=== PATIENT | female | born 1960 | race Hispanic/Latino ===

== ENCOUNTER 2018-02-20 15:12 | Emergency (ER) | payer SELFPAY ==
[2018-02-20] MEDS ORDERED: KETOROLAC TROMETHAMINE 30MG/ML ONE (15:42)
[2018-02-20 15:43] LABS: BASOPHILS % (AUTO) 0.1 % (0.0-5.0); HEMATOCRIT 37.9 % (36-48); LYMPHOCYTES % (AUTO) 7.1 % (21.0-51.0); MEAN CORPUSCULAR HEMOGLOBIN 31.5 pg (27.0-33.0); MEAN CORPUSCULAR HGB CONC 33.6 g/dL (32.0-36.0); MEAN CORPUSCULAR VOLUME 93.6 fL (79-99); MONOCYTES % (AUTO) 3.9 % (3.0-13.0); NEUTROPHILS % (AUTO) 88.9 % (40.0-77.0); PLATELET COUNT (AUTO) 303 K/uL (130-400); RED BLOOD CELL COUNT(AUTO) 4.05 MIL/uL (4.00-5.50); RED CELL DISTRIBUTION WIDTH 12.8 % (11.0-15.5); WHITE BLOOD COUNT (AUTO) 14.4 K/uL (4.8-10.8)
[2018-02-20 15:54] LABS: CREATININE 1.1 mg/dL (0.5-1.5); POTASSIUM 3.7 mmol/L (3.5-5.1)
[2018-02-20 16:02] LABS: ALBUMIN 3.8 g/dL (3.5-5.0); BILIRUBIN,DIRECT 0.1 mg/dL (0.0-0.3); BILIRUBIN,TOTAL 0.3 mg/dL (0.2-1.0); TOTAL PROTEIN, SERUM 8.2 g/dL (6.0-8.3)
[2018-02-20] MEDS ORDERED: TAMSULOSIN HCL 0.4 MG CAP.ER.24H ONE (16:50)
[2018-02-20] MEDS ORDERED: CEFTRIAXONE SODIUM 1 GM ONE (16:51)
[2018-02-20] MEDS ORDERED: SODIUM CHLORIDE 0.9% 100 ML IV ONE (16:51)
[2018-02-20 16:54] LABS: APPEARANCE,URINE Clear (CLEAR); BILIRUBIN,URINE Negative (NEGATIVE); COLOR,URINE Yellow (YELLOW); GLUCOSE, URINE (UA) Negative (NEGATIVE); KETONES,URINE Trace mg/dL (NEGATIVE); LEUKOCYTE ESTERASE ,URINE Negative (NEGATIVE); NITRATE,URINE Negative (NEGATIVE); OCCULT BLOOD,URINE Nonhemolyzed Trace (NEGATIVE); PROTEIN,URINE Trace (NEGATIVE)
[2018-02-20 17:07] LABS: BACTERIA,URINE Rare /HPF (None Seen); WBC,URINE 0-1 /HPF (0-1)
[2018-02-20 17:08] LABS: SQUAMOUS EPITHELIAL CELL,UR Few /HPF (0-2)
== END 2018-02-20 17:18 | disposition home or self-care (01) ==
LOC: EDH 15:12
DX: N20.0 Calculus of kidney (principal); N20.1 Calculus of ureter; N13.30 Unspecified hydronephrosis; Z98.890 Other specified postprocedural states
CPT/HCPCS: 36415; 74176; 80048; 80076; 81001; 83690; 85025; 87088; 96374; 96375; 99284; J0696; J1885

== ENCOUNTER 2018-09-11 22:20 | Emergency (ER) | payer OTHER, SELFPAY ==
[2018-09-11] MEDS ORDERED: KETOROLAC TROMETHAMINE 60 MG/2 ML VIAL ONE (23:17)
[2018-09-11] MEDS ORDERED: ONDANSETRON HCL 4 MG/2 ML VIAL ONE (23:17)
[2018-09-11] MEDS ORDERED: SODIUM CHLORIDE 0.9% 1000ML 2,000 ML IV ONE (23:18)
[2018-09-11 23:25] LABS: APPEARANCE,URINE Clear (CLEAR); BILIRUBIN,URINE Negative (NEGATIVE); COLOR,URINE Yellow (YELLOW); GLUCOSE, URINE (UA) TRACE mg/dL (NEGATIVE); KETONES,URINE Negative (NEGATIVE); LEUKOCYTE ESTERASE ,URINE Trace (NEGATIVE); NITRATE,URINE Negative (NEGATIVE); OCCULT BLOOD,URINE Trace (NEGATIVE); PROTEIN,URINE Negative (NEGATIVE)
[2018-09-11 23:37] LABS: BASOPHILS % (AUTO) 3.9 % (0.0-5.0); EOSINOPHILS % (AUTO) 2.3 % (0.0-8.0); HEMATOCRIT 36.7 % (36-48); MEAN CORPUSCULAR HGB CONC 33.9 g/dL (32.0-36.0); MEAN CORPUSCULAR VOLUME 94.5 fL (79-99); MONOCYTES % (AUTO) 9.4 % (3.0-13.0); NEUTROPHILS % (AUTO) 61.4 % (40.0-77.0); NUCLEATED RED BLOOD CELLS 0.1 % (0.0-0.19); PLATELET COUNT (AUTO) 245 K/uL (130-400); RED BLOOD CELL COUNT(AUTO) 3.88 MIL/uL (4.00-5.50); RED CELL DISTRIBUTION WIDTH 12.9 % (11.0-15.5); WHITE BLOOD COUNT (AUTO) 6.2 K/uL (4.8-10.8)
[2018-09-11 23:45] LABS: INR 0.91 (0.85-1.15); PARTIAL THROMBOPLASTIN TIME 30.1 SEC (26.3-35.5); PROTHROMBIN TIME 9.6 SEC (9.6-11.6)
[2018-09-11 23:46] LABS: CREATININE 0.9 mg/dL (0.5-1.5)
[2018-09-11] MEDS ORDERED: LIDOCAINE PF 2% 5ML ABBOJECT ONE (23:47)
[2018-09-11 23:50] LABS: ALBUMIN 3.8 g/dL (3.5-5.0); BILIRUBIN,TOTAL 0.2 mg/dL (0.2-1.0); TOTAL PROTEIN, SERUM 7.4 g/dL (6.0-8.3)
[2018-09-11 23:58] LABS: BACTERIA,URINE Few /HPF (None Seen); WBC,URINE 0-1 /HPF (0-1)
[2018-09-11 23:59] LABS: MUCUS,URINE Few LPF (None Seen); SQUAMOUS EPITHELIAL CELL,UR 0-2 /HPF (0-2)
[2018-09-12] MEDS ORDERED: LEVOFLOXACIN 750 MG/D5W 150 ML 0 ML ONE (00:43)
[2018-09-12] MEDS ORDERED: CEFTRIAXONE SODIUM 1 GM ONE (00:43)
[2018-09-12] MEDS ORDERED: LEVOFLOXACIN 500 MG TABLET ONE (00:47)
[2018-09-12] MEDS ORDERED: METOCLOPRAMIDE 10 MG/2 ML VIAL ONE (00:49)
[2018-09-12] MEDS ORDERED: DiphenhydrAMINE HCL 50 MG/ML VIAL ONE (00:50)
[2018-09-12] MEDS ORDERED: ONDANSETRON HCL 4 MG/2 ML VIAL ONE (00:50)
[2018-09-12] MEDS ORDERED: TAMSULOSIN HCL 0.4 MG CAP.ER.24H ONE (01:34)
[2018-09-12] MEDS ORDERED: HYDROCODONE/ACETAMINOPHEN 5/325 MG TAB ONE (01:51)
== END 2018-09-12 01:59 | disposition home or self-care (01) ==
LOC: EDH 22:20
DX: N23 Unspecified renal colic (principal); N39.0 Urinary tract infection, site not specified; R31.9 Hematuria, unspecified; Z87.442 Personal history of urinary calculi
CPT/HCPCS: 36415; 74176; 80053; 81001; 83605; 83690; 84484; 85025; 85610; 85730; 96374; 96375 ×2; 99285; J0696; J1200; J1885; J2001; J2405 ×2; J2765; J7030; J1956

== ENCOUNTER 2018-09-16 12:54 | Emergency (ER) | payer SELFPAY ==
[2018-09-16] MEDS ORDERED: KETOROLAC TROMETHAMINE 60 MG/2 ML VIAL ONE (13:40)
== END 2018-09-16 14:17 | disposition home or self-care (01) ==
LOC: EDH 12:54
DX: N20.0 Calculus of kidney (principal)
CPT/HCPCS: 96372; 99283; J1885

== ENCOUNTER 2024-02-07 18:43 | Inpatient (IN) | payer OTHER, SELFPAY ==
[~2024-02-07] VITALS: Ht 157.5 cm; Wt 112.2 kg
[2024-02-07] MEDS: 0.9%NACL 1000ML 1,000 ML IV ONE (19:13)
[2024-02-07] MEDS: ondanSETRON 4MG INJ IVP ONE (19:14)
[2024-02-07] MEDS: ketOROlac 15MG/ML VIAL (15MG/ML) IV ONE (19:15)
--- NOTE | 2024-02-07 19:19 | NUR ---
PT REORIENTED TO ROOM, CALL LIGHT WITHIN REACH
[2024-02-07 19:25] LABS: BASOPHILS # (AUTO) 0.03 K/uL (0.00-0.20); BASOPHILS % (AUTO) 0.3 % (0.0-5.0); EOSINOPHILS # (AUTO) 0.05 K/uL (0.00-0.70); EOSINOPHILS % (AUTO) 0.4 % (0.0-8.0); IMMATURE GRANULOCYTE ABSOLUTE 0.05 K/uL (0-1); LYMPHOCYTES # (AUTO) 1.5 K/uL (1.0-4.8); LYMPHOCYTES % (AUTO) 12.8 % (21.0-51.0); MEAN CORPUSCULAR HGB CONC 32.5 g/dL (32.0-36.0); MEAN CORPUSCULAR VOLUME 95.2 fL (79-99); MONOCYTES # (AUTO) 0.5 K/uL (0.1-1.0); MONOCYTES % (AUTO) 4.5 % (3.0-13.0); NEUTROPHILS # (AUTO) 9.6 K/uL (1.8-7.7); NEUTROPHILS % (AUTO) 81.6 % (40.0-77.0); PLATELET COUNT (AUTO) 297 K/uL (130-400); RED BLOOD CELL COUNT(AUTO) 3.78 MIL/uL (4.00-5.50); WHITE BLOOD COUNT (AUTO) 11.8 K/uL (4.8-10.8)
[2024-02-07 19:40] LABS: CREATININE 1.1 mg/dL (0.5-1.0); POTASSIUM 4.3 mmol/L (3.5-5.1)
[2024-02-07 19:44] LABS: ALBUMIN 3.8 g/dL (3.5-5.0); BILIRUBIN,DIRECT 0.1 mg/dL (0.0-0.3); BILIRUBIN,TOTAL 0.4 mg/dL (0.2-1.0)
--- NOTE | 2024-02-07 20:16 | HMCIMG ---
CT ABDOMEN/PELVIS W/O CONTRAST HISTORY: Right flank pain COMPARISON: 09/11/2018 TECHNIQUE: Multiple sequential axial images of the abdomen and pelvis were obtained from the dome of the diaphragm through symphysis pubis. Patient was not given contrast through intravenous route. Oral contrast was not given. FINDINGS: No pleural effusion is seen bilaterally. There is no evidence of parenchymal disease or pulmonary nodule of the visualized lower lungs. Degenerative changes of the thoracolumbar spine are present. The heart is not enlarged. Liver measures 18 cm. The liver, spleen, adrenal glands and pancreas are unremarkable. No hydronephrosis is seen on the left. There is right hydronephrosis with right hydroureter with 11 mm renal stone in the right proximal ureter. There is right renal atrophy. Right renal pelvic stone is also seen. Fecal material is seen in the colon. There are normal size retroperitoneal and mesenteric lymph nodes. No ascites is seen. No CT evidence of acute appendicitis is seen. Pelvic sidewalls are symmetric bilaterally. Bladder is moderately distended. IMPRESSION: 1. Right hydronephrosis with right hydroureter with 11 mm renal stone in the right proximal ureter. CT was performed with one or more following dose reduction techniques: automated exposure control, adjustment of the mA and kv according to patient's size, or use of a iterative reconstruction technique.
[2024-02-07] MEDS: tamSULOsin HCL 0.4 MG CAP.ER.24H PO SCH (20:37)
[2024-02-07] MEDS: morPHINE 2 MG SYG IVP SCH (20:38)
[2024-02-07 20:55] LABS: APPEARANCE,URINE CLEAR (CLEAR); BILIRUBIN,URINE NEGATIVE (NEGATIVE); COLOR,URINE LIGHT-YELLOW (YELLOW); GLUCOSE, URINE (UA) NEGATIVE (NEGATIVE); KETONES,URINE NEGATIVE (NEGATIVE); LEUKOCYTE ESTERASE ,URINE 250 Leu/uL (NEGATIVE); NITRATE,URINE NEGATIVE (NEGATIVE); OCCULT BLOOD,URINE SMALL (NEGATIVE); PROTEIN,URINE 30 mg/dL (NEGATIVE); UROBILINOGEN,URINE 0.2 mg/dL (0.2-1.0)
[2024-02-07 21:19] LABS: ADD UA MICROSCOPIC YES
[2024-02-07 21:25] LABS: BACTERIA,URINE RARE /HPF (None Seen); MUCUS,URINE RARE LPF (None Seen); SQUAMOUS EPITHELIAL CELL,UR FEW /HPF (0-2)
[2024-02-07] MEDS: cefTRIAXone 1G VIAL IVPB ONE (21:49)
--- NOTE | 2024-02-07 21:54 | ERN ---
General Chief Complaint: Abdominal Pain Stated Complaint: LOWER ABD PAIN X 2 WEEKS Time Seen by MD: 18:48 Time Seen by Midlevel: 18:48 Source: patient History of Present Illness Initial Comments Patient is a 64-year-old female with a past medical history of kidney stones presenting to the emergency department with right lower quadrant abdominal pain that radiates to her right flank area. She reports associated nausea and vomiting. Patient states the pain has been getting worse over the last couple of days. She states her last kidney stone was over seven years ago and she needed a nephrostomy tube placed. She reports recently being diagnosed with diabetes on October 19 and started new medications. She is unsure if the symptoms she was experiencing today are from the medication she started. Allergies: Coded Allergies: No Known Drug Allergies (Verified Allergy, 08/15/11) Home Meds Reported Medications Ondansetron (Ondansetron Odt) 4 Mg Tab.rapdis, 0.5 TAB PO TID PRN for nausea/vomiting for 4 Days, #8 TAB 0 Refills 02/07/24 Metformin HCl (Metformin HCl) 1,000 Mg Tablet, 500 MG PO BID, TAB 02/07/24 Atorvastatin Calcium (Atorvastatin Calcium) 20 Mg Tablet, 1 TAB PO HS for 30 Days, #30 TAB 0 Refills 02/07/24 Past Medical History Past Medical History: Diabetes-Type II, High Cholesterol, Kidney Stone, Sinusitis Past Surgical History: Other Surgical History Other: BREAST LUMP FATTY TUMOR, LITHOTRIPSY, LEG ROS Dictation CONSTITUTIONAL: Negative except for HPI HEAD/FACE: Negative except for HPI EENT: Negative except for HPI RESPIRATORY: Negative except for HPI GASTROINTESTINAL/ABDOMINAL: Negative except for HPI GENITOURINARY: Negative except for HPI MUSCULOSKELETAL: Negative except for HPI INTEGUMENTARY: Negative except for HPI NEUROLOGICAL/PSYCH: Negative except for HPI HEMATOLOGIC/LYMPHATIC: Negative except for HPI All Systems Negative, Except as noted above. 13 point review of systems assessed and all negative except for above. Physical Exam Physical Exam Dictation Vital Signs reviewed General Appearance: Alert, oriented x 3, no acute distress, well developed, nourished. Head and Face: non-traumatic. Eyes: PERRL, pink conjunctivas, eyelid no trauma, anterior chamber with arcus senilis. Ears: Pinnas intact and no signs of trauma or erythema ear canals clear and no discharge TM no erythema Nose: No discharge, no bleeding. Oropharynx: Mouth normal, tongue pink, pharynx clear,no erythema, tonsils no exudates, no abscesses noted, mucous membrane moist Neck: Supple, non-tender, no thyromegaly, no masses, no JVD, no bruits Breast:Deferred Chest:No tenderness, no crepitus, no paradoxical movement, no retractions Lungs:Clear, well-ventilated, symmetric, no rales, no wheezing, no rhonchi, no stridor, good breath sounds bilaterally Heart: Regular rate, regular rhythm, no murmur, no gallops Vascular: no peripheral edema, Abdomen: Soft, positive bowel sounds, nondistended, no guarding, nontender, no rebound, no masses no hepatomegaly, no splenomegaly, no Washington's sign, no hernias. Rectal: Deferred Genital: Deferred Neurological: Normal speech, motor function intact, sensory function intact Musculoskeletal: Neck nontender, full range of motion, back nontender, full range of motion, Extremities: nontender, full range of motion Skin: Color pink, dry, no turgor, no rash, no lacerations, no abrasions, no contusions. Lymphatic: Deferred Results Laboratory and Microbiology Lab and Micro Result Laboratory Tests Test 02/07/24 19:00 02/07/24 20:44 White Blood Count 11.8 K/uL (4.8-10.8) H Red Blood Count 3.78 MIL/uL (4.00-5.50) L Hemoglobin 11.7 g/dL (12.0-16.0) L Hematocrit 36.0 % (36-48) Mean Corpuscular Volume 95.2 fL (79-99) Mean Corpuscular Hemoglobin 31.0 pg (27.0-33.0) Mean Corpuscular Hemoglobin Concent 32.5 g/dL (32.0-36.0) Red Cell Distribution Width 12.0 % (11.0-15.5) Platelet Count 297 K/uL (130-400) Mean Platelet Volume 11.2 fL (7.5-10.5) H Immature Granulocyte % (Auto) 0.4 % (0-1) Neutrophils (%) (Auto) 81.6 % (40.0-77.0) H Lymphocytes (%) (Auto) 12.8 % (21.0-51.0) L Monocytes (%) (Auto) 4.5 % (3.0-13.0) Eosinophils (%) (Auto) 0.4 % (0.0-8.0) Basophils (%) (Auto) 0.3 % (0.0-5.0) Neutrophils # (Auto) 9.6 K/uL (1.8-7.7) H Lymphocytes # (Auto) 1.5 K/uL (1.0-4.8) Monocytes # (Auto) 0.5 K/uL (0.1-1.0) Eosinophils # (Auto) 0.05 K/uL (0.00-0.70) Basophils # (Auto) 0.03 K/uL (0.00-0.20) Absolute Immature Granulocyte (auto 0.05 K/uL (0-1) Nucleated Red Blood Cells 0.0 % (0.0-0.19) Sodium Level 140 mmol/L (136-145) Potassium Level 4.3 mmol/L (3.5-5.1) Chloride Level 102 mmol/L (101-111) Carbon Dioxide Level 29 mmol/L (21-32) Blood Urea Nitrogen 16 mg/dL (7-18) Creatinine 1.1 mg/dL (0.5-1.0) H Glomerular Filtration Rate Calc 57 mL/min (>90) Random Glucose 133 mg/dL (70-105) H Total Calcium 9.4 mg/dL (8.5-10.1) Total Bilirubin 0.4 mg/dL (0.2-1.0) Direct Bilirubin 0.1 mg/dL (0.0-0.3) Aspartate Amino Transf (AST/SGOT) 14 U/L (10-37) Alanine Aminotransferase (ALT/SGPT) 23 U/L (12-78) Alkaline Phosphatase 111 U/L (50-136) Total Protein 8.0 g/dL (6.0-8.3) Albumin 3.8 g/dL (3.5-5.0) Lipase 30 U/L (16-77) Urine Color LIGHT-YELLOW (YELLOW) Urine Appearance CLEAR (CLEAR) Urine pH 7.0 (5.0-8.0) Urine Specific [place] 1.020 (1.001-1.031) Urine Protein 30 mg/dL (NEGATIVE) H Urine Glucose (UA) NEGATIVE mg/dL (NEGATIVE) Urine Ketones NEGATIVE mg/dL (NEGATIVE) Urine Occult Blood SMALL (NEGATIVE) H Urine Nitrate NEGATIVE (NEGATIVE) Urine Bilirubin NEGATIVE mg/dL (NEGATIVE) Urine Urobilinogen 0.2 mg/dL (0.2-1.0) Urine Leukocyte Esterase 250 Allie/uL (NEGATIVE) H Urine RBC 11-25 /HPF (0-1) H Urine WBC 6-10 /HPF (0-1) H Urine Squamous Epithelial Cells FEW /HPF (0-2) Urine Bacteria RARE /HPF (None Seen) Labs Reviewed?: Yes MDM MDM: Differential diagnosis: Ureter stone, urinary tract infection, pyelonephritis Rationale: Tests considered and ordered secondary to shared decision making include: Previous outside records reviewed: Old ER visits. Risk of complication and/or morbidity or mortality of patient management: None Medications-Per medication reconciliation Need for hospitalization: Patient does meet criteria for hospitalization. Need for emergency major/minor surgery: No There are no social concerns with this patient. Prescription drug management Prescriptions will include symptomatic care Patient's prior external medical records from other ER visits were reviewed by me as indicated. Prior testing and results from previous visits were reviewed. Prior tests were taken into account with medical decision making and resource utilization, independent historian/historians were used to obtain complete medical history. I independently interpreted the test that were performed, results were reviewed by me and considered findings on radiology if ordered. Medical management and examination interpretation discussions were had by me with other qualified healthcare professionals as indicated for the patient's care. ED Course Orders Procedure Category Date Status Time Cbc With Differential LAB 02/07/24 Complete 18:52 Basic Metabolic Panel LAB 02/07/24 Complete 18:52 Hepatic Function Panel LAB 02/07/24 Complete 18:52 Lipase LAB 02/07/24 Complete 18:52 Urinalysis Profile LAB 02/07/24 Complete 18:52 Ondansetron 4mg Inj PHA 02/07/24 Complete (Zofran 4mg Inj) 19:00 0.9%Nacl 1000ml (Ns PHA 02/07/24 Complete 1000ml) 19:00 Ketorolac PHA 02/07/24 Complete Tromethamine 15mg/Ml 19:00 Ct Abdomen/Pelvis W/O CT 02/07/24 Resulted Contrast 19:06 Morphine 2mg Syg PHA 02/07/24 Complete (Morphine 2mg Syg) 20:30 Tamsulosin Hcl PHA 02/07/24 Complete (Flomax) 20:30 Culture Urine MARILEE 02/07/24 In Process 21:19 Ceftriaxone 1g Vial PHA 02/07/24 Complete (Rocephine 1g Inj) 22:00 Current Medications Medications (Trade) Dose Ordered Sig/[place] Route PRN Reason Start Time Stop Time Status Last Admin Dose Admin Ketorolac Tromethamine (toRADol) 15 mg ONCE ONCE IV 02/07/24 19:00 02/07/24 19:01 DC 02/07/24 19:15 Morphine Sulfate (morPHINE 2MG SYG) 2 mg ONCE IVP 02/07/24 20:30 02/07/24 23:59 DC 02/07/24 20:38 Ondansetron HCl (zoFRAN 4MG INJ) 4 mg ONCE ONCE IVP 02/07/24 19:00 02/07/24 19:01 DC 02/07/24 19:14 Sodium Chloride 1,000 ml @ 0 mls/hr ONCE ONCE IV 02/07/24 19:00 02/07/24 19:01 DC 02/07/24 19:13 Tamsulosin HCl (FloMAX) 0.4 mg ONCE PO 02/07/24 20:30 02/07/24 23:59 DC 02/07/24 20:37 Vital Signs Date Time Temp Pulse Resp B/P (MAP) Pulse Ox O2 Delivery O2 Flow Rate FiO2 02/07/24 19:18 98.2 63 20 171/87 98 Room Air* 0 21 02/07/24 18:45 99.5 66 16 182/91 97 Room Air 0 [place] [id number] IMAGING REPORT Signed PATIENT: BRANDON VALENTINE MR#: [id number] : 1960 SEX: F AGE: 64 LOCATION: [facility] ORDER 06 STATUS: REG ER REPORT#: [id number] SERVICE 05 REASON: r/flank pain r/o kidney stone ORDERING PHYSICIAN: PADMA HAINES PROCEDURE: ABD PEL WO - CT ABDOMEN/PELVIS W/O CONTRAST CT ABDOMEN/PELVIS W/O CONTRAST HISTORY: Right flank pain COMPARISON: 09/11/2018 TECHNIQUE: Multiple sequential axial images of the abdomen and pelvis were obtained from the dome of the diaphragm through symphysis pubis. Patient was not given contrast through intravenous route. Oral contrast was not given. FINDINGS: No pleural effusion is seen bilaterally. There is no evidence of parenchymal disease or pulmonary nodule of the visualized lower lungs. Degenerative changes of the thoracolumbar spine are present. The heart is not enlarged. Liver measures 18 cm. The liver, spleen, adrenal glands and pancreas are unremarkable. No hydronephrosis is seen on the left. There is right hydronephrosis with right hydroureter with 11 mm renal stone in the right proximal ureter. There is right renal atrophy. Right renal pelvic stone is also seen. Fecal material is seen in the colon. There are normal size retroperitoneal and mesenteric lymph nodes. No ascites is seen. No CT evidence of acute appendicitis is seen. Pelvic sidewalls are symmetric bilaterally. Bladder is moderately distended. IMPRESSION: 1. Right hydronephrosis with right hydroureter with 11 mm renal stone in the right proximal ureter. CT was performed with one or more following dose reduction techniques: automated exposure control, adjustment of the mA and kv according to patient's size, or use of a iterative reconstruction technique. DICTATED BY: JAM JUAREZ MD DATE: 02/07/242004 ELECTRONICALLY SIGNED BY: JAM JUAREZ MD DATE: 02/07/242015 DX & DISP Disposition: Inpatient Decision to Admit Date: Feb 07, 2024 Decision to Admit Time: 21:54 Departure Impression: Primary Impression: Right ureteral stone Additional Impressions: Hydronephrosis, right, Leukocytosis, Urinary tract infection Condition: Stable Referrals: SELF,REFERRAL (PCP) Time of Disposition: 21:54 I have reviewed the case, and I agree with, Diagnosis and Plan I performed the substantive portion of the visit. I have reviewed and personally made and approve the management plan that is documented in the note by myself or the EDGARDO. I acknowledge for responsibility for the patient's management plan. PADMA HAINES Feb 07, 2024 21:54
--- NOTE | 2024-02-07 22:09 | HP ---
History of Present Illness Reason for Visit: Abdominal pain History of Present Illness Ms. Brambila is a 64-year-old female that was seen and examined today on 02/07/2024. Patient is a good historian and personal health. Patient reports that she came to the emergency department with a chief complaint of abdominal pain. Onset wastoday at 7:00 p.m.. Location is suprapubic. Duration is on and off. Character is described as cramping. There was no alleviating factors. There was no aggravating factors. Patient reports associated nausea and vomiting x3 episodes. Today in the emergency department CBC unremarkable, chemistry unremarkable, urinalysis positive for leukocyte esterase and WBCs 6-10 under high-powered microscopy. CT of abdomen and pelvis shows right hydronephrosis with right hydroureter with the 11 mm renal stone in the right proximal ureter. For this reason emergency room requested patient be admitted to they could be evaluated by urology service. Past Medical History ADDITIONAL PAST MEDICAL HISTORY: [Diabetes mellitius type2, hyperlipidemia] SOCIAL HISTORY: [NEGATIVE FOR SMOKING, ALCOHOL USE, DRUG USE. PATIENT LIVES WITH HER BROTHER STEPHEN Brambila. 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 Patient denies difficulty paying her bills. Patient is typically independent of all her ADLs. Patient has good access to health care through her insurance.] SURGICAL HISTORY: [Left breast lipoma, left inner thigh lipoma excision, right lower back lipoma excision, ESWL] Review of Systems General: No Fever, No Chills, No Night Sweats, No Fatigue, No Malaise, No Appetite, No Other HEENT: No Head Aches, No Visual Changes, No Eye Pain, No Ear Pain, No Dysphasia, No Sinus Congestion, No Post Nasal Drip, No Sore Throat, No Other Pulmonary: No Dyspnea, No Cough, No Pleuritic Chest Pain, No Other Cardiovascular: No: Chest Pain, Palpitations, Orthopnea, Paroxysmal Noc. Dyspnea, Edema, Lt Headedness, Other Gastrointestinal: Nausea, Vomiting, Abdominal Pain; No: Diarrhea, Constipation, Melena, Hematochezia, Other Genitourinary: No Dysuria, No Frequency, No Incontinence, No Hematuria, No Retention, No Other Musculoskeletal: No: other, neck pain, shoulder pain, arm pain, back pain, hand pain, leg pain, foot pain Skin: No Urticaria, No Rash, No Other Neurological: No: Weakness, Numbness, Incoordination, Change in speech, Confus ion, Seizures, Other Allergies: Coded Allergies: No Known Drug Allergies (Verified Allergy, 08/15/11) Scheduled Atorvastatin Calcium (Atorvastatin Calcium), 1 TAB PO HS, (Reported) Metformin HCl (Metformin HCl), 500 MG PO BID, (Reported) Scheduled PRN Ondansetron (Ondansetron Odt), 0.5 TAB PO TID PRN for nausea/vomiting, (Reported) Exam Vital Signs Vital Signs Date Time Temp Pulse Resp B/P (MAP) Pulse Ox O2 Delivery O2 Flow Rate FiO2 02/07/24 19:18 98.2 63 20 171/87 98 Room Air* 0 21 General Appearance: Alert, Oriented X3, Cooperative, mild distress HEENT: Atraumatic, EOMI Respiratory: Clear to auscultation, Normal air movement, NL respiratory effort Cardiovascular: Regular rate, Regular rhythm, Normal S1, Normal S2 Abdominal: Normal bowel sounds, Soft, No tenderness Extremities: No edema Skin: No significant lesion Neuro: Normal speech, Strength at 5/5 X4 ext, Sensation intact, Cranial nerves 3-12 NL Psych/Mental Status: Mental status NL, Mood NL, Thoughts/Content NL Assessment/Plan ASSESSMENT: [ Right hydronephrosis, POA Right hydroureter, POA Nephrolithiasis, [address] on 02/07/2024, POA Urinary tract infection, POA Diabetes mellitius type2 hyperlipidemia PLAN: [ Admit patient to medical-surgical floor as inpatient status. Patient will be followed by urology service, Dr. Lima Keep patient NPO Lactated Ringer's 100 mL/HR maintenance fluids Check preprocedure labs, CBC, BMP, magnesium, phosphorus, PTT, UA, type and screen, EKG, CXR As needed analgesia with morphine Empiric antibiotic therapy with Rocephin Check glucometer a.c. and HS Humulin R sliding scale 1/2 dose Check hemoglobin A1c in a.m. Consider resuming home medications once patient is no longer NPO GI prophylaxis, famotidine 20 mg IV once daily. DVT prophylaxis, Quique's and SCDs. ADVANCED CARE PLANNING 1. Which of the following were discussed? Hospice Care - Yes Therapeutic options - Yes Advance Directives - Yes- patient states she does not have any advance directives in place at this time, however her brother can make decisions for her if she becomes unable. Other discussions - patient wishes to remain a full code at this time 2. Discussed with who? Patient 3. Voluntary nature of this service was explained to the patient? Yes 4. Amount of time spent - ___ 16 minutes ____ 5. Reviewed by Physician? (if this service was performed by NPP) Yes This document was generated in part using voice recognition software, occasional wrong word or sound alike substitutions may have occurred due to the inherent limitations of voice recognition software. Read the chart carefully and recognize using context, where the substitutions have occurred. Although every effort was made to edit the content, leather goods ii assembler and typing errors may occur ATTESTATION BY PHYSICIAN I have seen and examined the patient. I reviewed the documentation, medical decision making, and treatment plan as noted by the mid-level provider above. I agree with the findings and plan of care. BRIANNA DURAN [facility] Feb 07, 2024 22:08
[2024-02-07] MEDS ORDERED: METF-446 PO (22:24)
[2024-02-07] MEDS ORDERED: ATOR20TA65 PO (22:24)
[2024-02-07] MEDS ORDERED: ONDA-243 PO ×2 (22:25)
[2024-02-08] MEDS ORDERED: hydrALAZine 20MG/ML VIAL IV PRN (00:30)
[2024-02-08] MEDS ORDERED: ondanSETRON 4MG INJ IV PRN (00:30)
[2024-02-08] MEDS ORDERED: acetaMINOPHEN 650 MG SUPPOSITORY RC PRN (00:30)
[2024-02-08] MEDS: LACTATED RINGERS 1000ML 1,000 ML IV SCH (00:50)
[2024-02-08 03:52] LABS: BASOPHILS # (AUTO) 0.03 K/uL (0.00-0.20); BASOPHILS % (AUTO) 0.4 % (0.0-5.0); EOSINOPHILS # (AUTO) 0.08 K/uL (0.00-0.70); EOSINOPHILS % (AUTO) 1.1 % (0.0-8.0); HEMATOCRIT 32.1 % (36-48); IMMATURE GRANULOCYTE ABSOLUTE 0.02 K/uL (0-1); LYMPHOCYTES # (AUTO) 2.3 K/uL (1.0-4.8); LYMPHOCYTES % (AUTO) 30.1 % (21.0-51.0); MEAN CORPUSCULAR HEMOGLOBIN 30.9 pg (27.0-33.0); MEAN CORPUSCULAR HGB CONC 32.4 g/dL (32.0-36.0); MEAN CORPUSCULAR VOLUME 95.3 fL (79-99); MONOCYTES # (AUTO) 0.6 K/uL (0.1-1.0); MONOCYTES % (AUTO) 7.4 % (3.0-13.0); NEUTROPHILS # (AUTO) 4.6 K/uL (1.8-7.7); NEUTROPHILS % (AUTO) 60.7 % (40.0-77.0); PLATELET COUNT (AUTO) 256 K/uL (130-400); RED BLOOD CELL COUNT(AUTO) 3.37 MIL/uL (4.00-5.50); WHITE BLOOD COUNT (AUTO) 7.6 K/uL (4.8-10.8)
[2024-02-08 04:02] LABS: HEMOGLOBIN A1C 6.5 % (4.0-6.0); INR 1.01 (0.85-1.15); PROTHROMBIN TIME 10.9 SEC (9.6-11.6)
[2024-02-08 04:03] LABS: PARTIAL THROMBOPLASTIN TIME 29.6 SEC (26.3-35.5)
[2024-02-08 04:04] LABS: CREATININE 1.1 mg/dL (0.5-1.0); MAGNESIUM 1.8 mg/dL (1.80-2.40); PHOSPHORUS 4.1 mg/dL (2.5-4.9); POTASSIUM 4.3 mmol/L (3.5-5.1)
[2024-02-08] MEDS: INSULIN humuLIN R 100 UNIT/ML 3ML SQ SCH (07:30)
--- NOTE | 2024-02-08 08:00 | NUR ---
BLOOD GLUCOSE 99. NO INSULIN COVERAGE NEEDED AT THIS TIME
--- NOTE | 2024-02-08 08:00 | NUR ---
CALLED DR. GARCIA OFFICE TO NOTIFY ABOUT NEW CONSULT. NO NEW ORDERS
[2024-02-08] MEDS: FAMOTIDINE 20MG VIAL IV SCH (09:39)
--- NOTE | 2024-02-08 10:26 | HMCIMG ---
CHEST 1VW REASON: pre procedural COMPARISON: None. FINDINGS: Single view of the chest was obtained. Lungs are clear. Heart size is normal. There is no pulmonary vascular congestion. Mediastinum and bony thorax appear unremarkable. IMPRESSION: 1. Normal single view chest x-ray.
--- NOTE | 2024-02-08 12:00 | NUR ---
BLOOD GLUCOSE 110. NO INSULIN COVERAGE NEDED AT THIS TIME.
--- NOTE | 2024-02-08 13:43 | PN ---
[facility] PROGRESS NOTE Date of Service: Feb 08, 2024 Time of Service: 13:[address] Reaves SUBJECTIVE: [ 02/06 Ms. Brambila is a 64-year-old female that was seen and examined today on 02/07/2024. Patient is a good historian and personal health. Patient reports that she came to the emergency department with a chief complaint of abdominal pain. Onset wastoday at 7:00 p.m.. Location is suprapubic. Duration is on and off. Character is described as cramping. There was no alleviating factors. There was no aggravating factors. Patient reports associated nausea and vomiting x3 episodes. Today in the emergency department CBC unremarkable, chemistry unremarkable, urinalysis positive for leukocyte esterase and WBCs 6-10 under high-powered microscopy. CT of abdomen and pelvis shows right hydronephrosis with right hydroureter with the 11 mm renal stone in the right proximal ureter. For this reason emergency room requested patient be admitted to they could be evaluated by urology service. 02/07 patient was seen by nurse practitioner and physician during rounding in emergency department in room ED three lying in the bed. CT abdomen/pelvis showed right hydroureter stone measuring 11 mm and also right hydronephrosis. Chest x-ray] normal single-view. We are waiting for further recommendations of urologist regarding the stone. We will continue to monitor patient in the meantime. A.m. labs. At this moment patient is on Rocephin UA positive for leukocytosis REVIEW OF SYSTEMS CONSTITUTIONAL: Denies fevers, chills, or night sweats. No unintentional weight loss reported. NEUROLOGICAL: Denies headache, amaurosis fugax, motor weakness, sensory deficit, vertigo/spinning sensation, gait abnormalities, or tremors. ENT: No hearing loss, otalgia, otorrhea, rhinitis, rhinorrhea, hoarseness, or sore throat. CARDIOVASCULAR: Denies any exertional angina, dyspnea on exertion, orthopnea, paroxysmal nocturnal dyspnea, palpitations, life-threatening arrhythmias, claudication. PULMONARY: Denies any shortness of breath, cough, phlegm/sputum, hemoptysis, pleuritic chest pain. SLEEP: Denies morning headaches, daytime somnolence or napping. Denies difficulty falling asleep, staying asleep, waking from sleep. Denies knowledge of snoring. GASTROINTESTINAL: Denies any type of dysphagia to either liquids or solids. Denies nausea, vomiting, pyrosis, early satiety, abdominal pain, diarrhea, constipation, or changes in stool consistency or caliber. Denies coffee-ground emesis, hematemesis, hematochezia, or melanotic stools. GENITOURINARY: Denies frequency, urgency, nocturia, hematuria or incontinence (Storage/Irritative symptoms.) Low urinary stream, straining to void, urinary intermittency or hesitancy, splitting of the voiding stream, terminal dribbling. ENDOCRINOLOGIC: Denies polyuria, polydipsia, polyphagia or heat/cold intolerances. HEMATOLOGIC: Denies thrombophilia/previous clots, or coagulopathy/bleeding disorders. ONCOLOGIC: Denies personal history of malignancy. DERMATOLOGIC: Denies rashes or pruritus. PSYCHIATRIC: Denies any suicidal or homicidal ideation. Denies hallucinations. PHYSICAL EXAM GENERAL APPEARANCE: The patient is awake, alert, and oriented, in no acute cardiopulmonary distress. NEUROLOGICAL: Cranial nerves II-XII grossly intact. Motor is 5/5 in bilateral upper and lower extremities proximal to distal. No sensory deficits. HEENT: Face is symmetric. Pupils are equal and reactive. Extraocular movements are intact. NECK: Supple. No JVD. No thyromegaly. No submental, submandibular, pre- /postauricular, occipital or supraclavicular lymphadenopathy. CHEST: Normal chest expansion. No Telemetry. LUNGS: Absence of any rales, rhonchi or any wheezing. CARDIOVASCULAR: Regular. S1 and S2 normal. No appreciable rubs, murmurs or gallops. ABDOMEN: Soft, nontender, and nondistended. There is no rebound, voluntary guarding, or rigidity. : Deferred. No Pa. EXTREMITIES: Non-edematous and not cyanotic. No clubbing. Good capillary refill. SKIN: No skin breakdown. Vital Signs (last 8hr) Date Time Temp Pulse Resp B/P (MAP) Pulse Ox O2 Delivery O2 Flow Rate FiO2 02/08/24 08:00 97.5 69 16 138/67 97 Room Air* 0 21 02/08/24 06:22 98.4 60 18 146/77 97 Room Air* 0 21 LABS: Laboratory: Test 02/08/24 11:42 02/08/24 03:40 02/07/24 20:44 02/07/24 19:00 Range/Units Whole Blood Glucose 99 70-110 MG/DL White Blood Count 7.6 # 4.8-10.8 K/uL Red Blood Count 3.37 L 4.00-5.50 MIL/uL Hemoglobin 10.4 L 12.0-16.0 g/dL Hematocrit 32.1 L 36-48 % Mean Corpuscular Volume 95.3 79-99 fL Mean Corpuscular Hemoglobin 30.9 27.0-33.0 pg Mean Corpuscular Hemoglobin Concent 32.4 32.0-36.0 g/dL Red Cell Distribution Width 12.0 11.0-15.5 % Platelet Count 256 130-400 K/uL Mean Platelet Volume 11.0 H 7.5-10.5 fL Immature Granulocyte % (Auto) 0.3 0-1 % Neutrophils (%) (Auto) 60.7 40.0-77.0 % Lymphocytes (%) (Auto) 30.1 21.0-51.0 % Monocytes (%) (Auto) 7.4 3.0-13.0 % Eosinophils (%) (Auto) 1.1 0.0-8.0 % Basophils (%) (Auto) 0.4 0.0-5.0 % Neutrophils # (Auto) 4.6 1.8-7.7 K/uL Lymphocytes # (Auto) 2.3 1.0-4.8 K/uL Monocytes # (Auto) 0.6 0.1-1.0 K/uL Eosinophils # (Auto) 0.08 0.00-0.70 K/uL Basophils # (Auto) 0.03 0.00-0.20 K/uL Absolute Immature Granulocyte (auto 0.02 0-1 K/uL Nucleated Red Blood Cells 0.0 0.0-0.19 % Prothrombin Time 10.9 9.6-11.6 SEC Prothromb Time International Ratio 1.01 0.85-1.15 Activated Partial Thromboplast Time 29.6 26.3-35.5 SEC Sodium Level 142 136-145 mmol/L Potassium Level 4.3 3.5-5.1 mmol/L Chloride Level 106 101-111 mmol/L Carbon Dioxide Level 29 21-32 mmol/L Blood Urea Nitrogen 16 7-18 mg/dL Creatinine 1.1 H 0.5-1.0 mg/dL Glomerular Filtration Rate Calc 57 >90 mL/min Random Glucose 110 H 70-105 mg/dL Hemoglobin A1c 6.5 H 4.0-6.0 % Estimated Average Glucose (eAG) 140 H 70-126 mg/dL Total Calcium 8.8 8.5-10.1 mg/dL Phosphorus Level 4.1 2.5-4.9 mg/dL Magnesium Level 1.80 1.80-2.40 mg/dL Urine Color LIGHT-YELLOW YELLOW Urine Appearance CLEAR CLEAR Urine pH 7.0 5.0-8.0 Urine Specific [place] 1.020 1.001-1.031 Urine Protein 30 H NEGATIVE mg/dL Urine Glucose (UA) NEGATIVE NEGATIVE mg/dL Urine Ketones NEGATIVE NEGATIVE mg/dL Urine Occult Blood SMALL H NEGATIVE Urine Nitrate NEGATIVE NEGATIVE Urine Bilirubin NEGATIVE NEGATIVE mg/dL Urine Urobilinogen 0.2 0.2-1.0 mg/dL Urine Leukocyte Esterase 250 H NEGATIVE Allie/uL Urine RBC 11-25 H 0-1 /HPF Urine WBC 6-10 H 0-1 /HPF Urine Squamous Epithelial Cells FEW 0-2 /HPF Urine Bacteria RARE None Seen /HPF Total Bilirubin 0.4 0.2-1.0 mg/dL Direct Bilirubin 0.1 0.0-0.3 mg/dL Aspartate Amino Transf (AST/SGOT) 14 10-37 U/L Alanine Aminotransferase (ALT/SGPT) 23 12-78 U/L Alkaline Phosphatase 111 50-136 U/L Total Protein 8.0 6.0-8.3 g/dL Albumin 3.8 3.5-5.0 g/dL Lipase 30 16-77 U/L Current Medications Medications (Trade) Dose Ordered Sig/[place] Route PRN Reason Start Time Stop Time Status Last Admin Dose Admin Acetaminophen (TYLenol 650MG SUPPOSITORY) 650 mg Q6H PRN RC MILD PAIN (1-3) 02/08/24 00:30 03/09/24 00:29 Ceftriaxone Sodium (ROCEphine 1G INJ) 1 gm Q24H IV 02/08/24 22:00 02/18/24 21:59 Famotidine (Pepcid 20mg Vial) 20 mg DAILY IV 02/08/24 09:00 03/09/24 08:59 02/08/24 09:39 20 MG Hydralazine HCl (APRESOLine 20MG INJ) 10 mg Q6H PRN IV For:SBP above 160;DBP above 90 02/08/24 00:30 03/09/24 00:29 Insulin Human Regular (humuLIN R 100 UNIT/ML 3ML) INSULIN SLIDING SCAL... ACHS SQ 02/08/24 07:30 03/09/24 07:29 Lactated Ringer's 1,000 ml @ 100 mls/hr Q10H IV 02/08/24 00:30 03/09/24 00:29 02/08/24 09:39 100 MLS/HR Morphine Sulfate (morPHINE 2MG SYG) 2 mg ONCE IVP 02/07/24 20:30 02/07/24 23:59 DC 02/07/24 20:38 2 MG Morphine Sulfate (morPHINE 2MG SYG) 2 mg Q4H PRN IVP SEVERE PAIN (7-10) 02/08/24 00:30 02/15/24 00:29 Ondansetron HCl (zoFRAN 4MG INJ) 4 mg Q6H PRN IV NAUSEA/VOMITING 02/08/24 00:30 03/09/24 00:29 Tamsulosin HCl (FloMAX) 0.4 mg ONCE PO 02/07/24 20:30 02/07/24 23:59 DC 02/07/24 20:37 0.4 MG DIAGNOSTICS / RADIOLOGY: [ ] ASSESSMENT: [ Right hydronephrosis, POA Right hydroureter with 11 mm renal stone in the right proximal ureter, POA Nephrolithiasis, [address] on 02/07/2024, POA Urinary tract infection, POA Diabetes mellitius type2 hyperlipidemia ] PLAN: [ Admit to: Medical-surgical floor Consults: Urologist Antibiotics: Rocephin Tests: None NEURO: Minimize central acting medications as possible. Fall Precautions. Well lighted room through the day and minimize interruptions through the night to prevent acute delirium. PULMONARY: Supplemental 02 as needed BiPAP as necessary, for respiratory distress Titrate Fio2 to keep Spo2 > or = 90% DuoNebs and CPT as needed IS hourly while awake for pulmonary hygiene Out of bed to chair as tolerated VAP Bundle Maintain aspiration precautions at all times CARDIOVASCULAR: Follow hemodynamics. Vital signs per facility protocol GI & NUTRITION: Continue nutritional support Aspirations precautions Prokinetic agents and laxatives as needed KIDNEYS & ELECTROLYTES: Strict monitoring of intake and output Daily weights Avoid nephrotoxic agents Monitor electrolytes and replace as needed Goal urine output of 30mL/hr or 0.5mL/kg/hr Medications to be dosed according to renal function. Avoid contrast if possible ENDOCRINE: Maintain blood glucose between 100-180 at all times. Insulin sliding scale for blood glucose management Hypoglycemia and hyperglycemia protocol in place INFECTIOUS DISEASE: Trend temperature, WBC and procalcitonin level Follow cultures, deescalate antibiotics as soon as possible. Panculture if new onset fever HEMATOLOGY & COAGULATION: Monitor H&H. Keep Hgb > 7 Transfuse 1 unit of PRBC for Hgb < 7 Transfuse 1 pack of platelets of platelets < 20, 000 Watch for any signs and symptoms of bleeding SKIN: Pressure ulcer prevention per facility protocol Specialty mattress as needed Treatment plan discussed with patient and family at the bedside Medications to be reconciled once obtained by patient and/or family and available to be reconciled in computer p.r.n. medication for pain nausea and vomiting Questions were answered We will continue to monitor the patient closely [place] for disposition Rehab: PT/OT GI: PPI DVT: SCD's Code Status: Full Resuscitation Disposition: TBD Prognosis: Guarded ] ATTESTATION BY PHYSICIAN I have seen and examined the patient. I reviewed the documentation, medical decision making, and treatment plan as noted by the mid-level provider above. I agree with the findings and plan of care. MD SANDY Reaves KATARZYNA B S[employer]IOR FIELD SERVICE ENGINEER Feb 08, 2024 13:43
--- NOTE | 2024-02-08 15:37 | NUR ---
CALLED [facility]TH [facility]LO[facility]; SPOKE TO Jarek SORENSEN RECREATION OFFICER AND GAVE REPORT. NOTIFY MR. SORENSEN RECREATION OFFICER THAT THERE IS A CONSULT PENDING WITH DR. GARCIA AND THAT DOCTOR IS AWARE. JUST PENDING VISIT. MR. SORENSEN VERBALIZED UNDERSTANDING.
[2024-02-08 15:45] VITALS: BP 124/63; PULSE 75; RESP 20; TEMP 98.7
[2024-02-08 20:00] VITALS: BP 145/70; PULSE 61; RESP 18; TEMP 98.9
[2024-02-08] MEDS: cefTRIAXone 1G VIAL IV SCH (22:25)
[2024-02-09] VITALS: BP 147/79; PULSE 70; RESP 20; TEMP 98.6
[2024-02-09] MEDS: morPHINE 2 MG SYG IVP PRN (02:43)
[2024-02-09 04:00] VITALS: BP 142/74; PULSE 68; RESP 18; TEMP 98
--- NOTE | 2024-02-09 04:07 | CONS ---
REQUESTING PHYSICIAN: Dr. Cortez and Dr. Reaves. REASON FOR CONSULTATION: Right hydronephrosis and right flank pain. HISTORY OF PRESENT ILLNESS: A 64-year-old female, right-sided abdominal pain of 1-day duration of nausea and vomiting. Noted on CT scan in the Emergency Room to have right hydronephrosis, right hydroureter due to an 11 mm proximal ureteric stone and a consultation Urology requested. The patient encountered lying in bed comfortably, stating that her pain has resolved pretty much completely. The patient has no dysuria. She has a history of a right-sided kidney stone 5 years ago, treated with extracorporeal shockwave seen in [facility]. ALLERGIES: None. MEDICATIONS: Currently include Rocephin with p.r.n. pain medication. She is also on Zofran, tamsulosin, insulin, famotidine and hydralazine. PAST MEDICAL HISTORY: Diabetes, hyperlipidemia. PAST SURGICAL HISTORY: Extracorporal shock wave lithotripsy, left breast lipoma, thigh lipoma. FAMILY HISTORY: Negative for kidney stones. 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 No children. Does not smoke or drink. REVIEW OF SYSTEMS: She has no shortness of breath, no chest pain. Her appetite is poor. Some nausea, no vomiting, no constipation or diarrhea. No headaches, dizziness or nosebleeds. No joint pain or joint swelling, limitation of movement. No night sweats, fever, or chills. No skin rash. PHYSICAL EXAMINATION: GENERAL: Obese female, in no distress. VITAL SIGNS: Temperature is 98, blood pressure is 138/67 with a pulse of 98. NECK: Has no adenopathy or supraclavicular masses palpable. LUNGS: Morales have basal crepitations. ABDOMEN: Full, soft, nontender. BACK: Mild CVA tenderness right side. EXTERNAL GENITALIA AND RECTAL: Deferred. LABORATORY DATA: Reviewed in detail. The patient's white count is 7.6, hematocrit is 32, platelet count is 256. Sodium 142, potassium 4.3, BUN and creatinine are 16 and 1.1. Urinalysis shows slightly cloudy yellow urine, specific gravity 1.020, pH of 7.0, glucose, ketones and nitrites are all negative. She has a small amount of blood, 11-25 rbc's per high power field and 6-10 white cells per high power field. IMAGING STUDIES: Show atrophy of right kidney, hydronephrosis, right side, moderate 11 mm proximal ureteric stone. ASSESSMENT: Hydronephrosis and right-sided ureteric stone. RECOMMENDATIONS: * To proceed with nephrostomy tube placement on the right hand side by Interventional Radiology as soon as possible. * IV hydration. * Medical expulsive therapy with Flomax. * IV antibiotics. * Once the patient has a chief kidney drainage, follow up with me as an outpatient following discharge or urologist of her choice in about a week or 2 for stage definite therapy of her obstructing kidney stone. The patient's concerns were answered. Thank you for the opportunity for providing consultation on your patient. TID: [id number] RECEIPT: [id number]
[2024-02-09 04:21] LABS: BASOPHILS # (AUTO) 0.03 K/uL (0.00-0.20); BASOPHILS % (AUTO) 0.4 % (0.0-5.0); EOSINOPHILS # (AUTO) 0.13 K/uL (0.00-0.70); EOSINOPHILS % (AUTO) 1.9 % (0.0-8.0); HEMATOCRIT 34.5 % (36-48); IMMATURE GRANULOCYTE ABSOLUTE 0.02 K/uL (0-1); LYMPHOCYTES % (AUTO) 28.6 % (21.0-51.0); MEAN CORPUSCULAR HEMOGLOBIN 31.2 pg (27.0-33.0); MEAN CORPUSCULAR HGB CONC 32.2 g/dL (32.0-36.0); MEAN CORPUSCULAR VOLUME 96.9 fL (79-99); MONOCYTES # (AUTO) 0.6 K/uL (0.1-1.0); MONOCYTES % (AUTO) 8.4 % (3.0-13.0); NEUTROPHILS # (AUTO) 4.2 K/uL (1.8-7.7); NEUTROPHILS % (AUTO) 60.4 % (40.0-77.0); PLATELET COUNT (AUTO) 257 K/uL (130-400); RED BLOOD CELL COUNT(AUTO) 3.56 MIL/uL (4.00-5.50); RED CELL DISTRIBUTION WIDTH 11.9 % (11.0-15.5); WHITE BLOOD COUNT (AUTO) 6.9 K/uL (4.8-10.8)
[2024-02-09 04:37] LABS: ALBUMIN 3.1 g/dL (3.5-5.0); BILIRUBIN,TOTAL 0.5 mg/dL (0.2-1.0); MAGNESIUM 1.9 mg/dL (1.80-2.40); POTASSIUM 4.1 mmol/L (3.5-5.1); TOTAL PROTEIN, SERUM 6.9 g/dL (6.0-8.3)
[2024-02-09 08:00] VITALS: BP 136/74; PULSE 71; RESP 20; TEMP 98.6; O2SAT 94
--- NOTE | 2024-02-09 09:20 | NUR ---
CALL PLACE TO DR DODSON IR NOTIFIED OF RT NEPHROSTOMY TUBE PLACEMENT, CLINICALS PROVIDED STATES NONEMERGENT WILL DO ON SUNDAY. PRIMARY NURSE MADE AWARE. BROOKS PEREZ
--- NOTE | 2024-02-09 11:41 | NUR ---
NOTE SUMMARY/ RESCHEDULE NEPHROSTOMY PATIENT ALERT X4 SUSANA GUY AVAYA ENGINEER CALLED ME AND STATED THAT PATIENTS NEPHROSTOMY PROCEDURE WILL BE PUSHED TILL SUNDAY PER IR TEAM, STATED THAT IT IS NOT EMERGENT I LET PATIENT KNOW AND SHE ASKED IF TIS OKAY TO BE DC AND FOLLOW UP SUNDAY FOR PROCEDURE, I ASKED LINDA CASH ABOUT SITUATION AND THAT SHE WOULD CALL DR GARCIA TO SEE IF THAT IS OKAY, NO ANSWER FROM DR GARCIA YET PATIENT RESTING IN BED, CALL LIGHT IN REACH, AT BEDSIDE
[2024-02-09 12:00] VITALS: BP 144/90; PULSE 76; RESP 18; TEMP 98.3
--- NOTE | 2024-02-09 13:36 | PN ---
[facility] PROGRESS NOTE Date of Service: Feb 09, 2024 Time of Service: 13:[address] Reaves SUBJECTIVE: [ 02/06 Ms. Brambila is a 64-year-old female that was seen and examined today on 02/07/2024. Patient is a good historian and personal health. Patient reports that she came to the emergency department with a chief complaint of abdominal pain. Onset wastoday at 7:00 p.m.. Location is suprapubic. Duration is on and off. Character is described as cramping. There was no alleviating factors. There was no aggravating factors. Patient reports associated nausea and vomiting x3 episodes. Today in the emergency department CBC unremarkable, chemistry unremarkable, urinalysis positive for leukocyte esterase and WBCs 6-10 under high-powered microscopy. CT of abdomen and pelvis shows right hydronephrosis with right hydroureter with the 11 mm renal stone in the right proximal ureter. For this reason emergency room requested patient be admitted to they could be evaluated by urology service. 02/07 patient was seen by nurse practitioner and physician during rounding in emergency department in room ED three lying in the bed. CT abdomen/pelvis showed right hydroureter stone measuring 11 mm and also right hydronephrosis. Chest x-ray] normal single-view. We are waiting for further recommendations of urologist regarding the stone. We will continue to monitor patient in the meantime. A.m. labs. At this moment patient is on Rocephin UA positive for leukocytosis 02/08 patient was seen by nurse practitioner physician. Patient is pending nephrostomy tube placement on right on 02/11/24 by IR. Vital signs stable. WBC today is 6.9 hemoglobin 11.1 hematocrit 34.5. Electrolyte within normal limits. Final urine culture negative. Patient denies any shortness of breath, chest pain, nausea, vomiting or any other discomfort at this moment other than right abdominal pain with shooting pain which is relieved when receive pain medications. We will continue to monitor patient in the meantime. A.m. labs REVIEW OF SYSTEMS CONSTITUTIONAL: Denies fevers, chills, or night sweats. No unintentional weight loss reported. NEUROLOGICAL: Denies headache, amaurosis fugax, motor weakness, sensory deficit, vertigo/spinning sensation, gait abnormalities, or tremors. ENT: No hearing loss, otalgia, otorrhea, rhinitis, rhinorrhea, hoarseness, or sore throat. CARDIOVASCULAR: Denies any exertional angina, dyspnea on exertion, orthopnea, paroxysmal nocturnal dyspnea, palpitations, life-threatening arrhythmias, claudication. PULMONARY: Denies any shortness of breath, cough, phlegm/sputum, hemoptysis, pleuritic chest pain. SLEEP: Denies morning headaches, daytime somnolence or napping. Denies difficulty falling asleep, staying asleep, waking from sleep. Denies knowledge of snoring. GASTROINTESTINAL: Denies any type of dysphagia to either liquids or solids. Denies nausea, vomiting, pyrosis, early satiety, abdominal pain, diarrhea, constipation, or changes in stool consistency or caliber. Denies coffee-ground emesis, hematemesis, hematochezia, or melanotic stools. GENITOURINARY: Denies frequency, urgency, nocturia, hematuria or incontinence (Storage/Irritative symptoms.) Low urinary stream, straining to void, urinary intermittency or hesitancy, splitting of the voiding stream, terminal dribbling. ENDOCRINOLOGIC: Denies polyuria, polydipsia, polyphagia or heat/cold intolerances. HEMATOLOGIC: Denies thrombophilia/previous clots, or coagulopathy/bleeding disorders. ONCOLOGIC: Denies personal history of malignancy. DERMATOLOGIC: Denies rashes or pruritus. PSYCHIATRIC: Denies any suicidal or homicidal ideation. Denies hallucinations. PHYSICAL EXAM GENERAL APPEARANCE: The patient is awake, alert, and oriented, in no acute cardiopulmonary distress. NEUROLOGICAL: Cranial nerves II-XII grossly intact. Motor is 5/5 in bilateral upper and lower extremities proximal to distal. No sensory deficits. HEENT: Face is symmetric. Pupils are equal and reactive. Extraocular movements are intact. NECK: Supple. No JVD. No thyromegaly. No submental, submandibular, pre- /postauricular, occipital or supraclavicular lymphadenopathy. CHEST: Normal chest expansion. No Telemetry. LUNGS: Absence of any rales, rhonchi or any wheezing. CARDIOVASCULAR: Regular. S1 and S2 normal. No appreciable rubs, murmurs or gallops. ABDOMEN: Soft, nontender, and nondistended. There is no rebound, voluntary guarding, or rigidity. : Deferred. No Pa. EXTREMITIES: Non-edematous and not cyanotic. No clubbing. Good capillary refill. SKIN: No skin breakdown. Vital Signs (last 8hr) Date Time Temp Pulse Resp B/P (MAP) Pulse Ox O2 Delivery O2 Flow Rate FiO2 02/09/24 12:00 98.2 76 18 144/90 93 Room Air 21 02/09/24 08:00 94 Room Air* 0 21 02/09/24 08:00 98.6 71 20 136/74 94 Room Air 21 LABS: Laboratory: Test 02/09/24 11:24 02/09/24 03:42 02/08/24 03:40 02/07/24 20:44 Range/Units Whole Blood Glucose 94 70-110 MG/DL White Blood Count 6.9 4.8-10.8 K/uL Red Blood Count 3.56 L 4.00-5.50 MIL/uL Hemoglobin 11.1 L 12.0-16.0 g/dL Hematocrit 34.5 L 36-48 % Mean Corpuscular Volume 96.9 79-99 fL Mean Corpuscular Hemoglobin 31.2 27.0-33.0 pg Mean Corpuscular Hemoglobin Concent 32.2 32.0-36.0 g/dL Red Cell Distribution Width 11.9 11.0-15.5 % Platelet Count 257 130-400 K/uL Mean Platelet Volume 11.3 H 7.5-10.5 fL Immature Granulocyte % (Auto) 0.3 0-1 % Neutrophils (%) (Auto) 60.4 40.0-77.0 % Lymphocytes (%) (Auto) 28.6 21.0-51.0 % Monocytes (%) (Auto) 8.4 3.0-13.0 % Eosinophils (%) (Auto) 1.9 0.0-8.0 % Basophils (%) (Auto) 0.4 0.0-5.0 % Neutrophils # (Auto) 4.2 1.8-7.7 K/uL Lymphocytes # (Auto) 2.0 1.0-4.8 K/uL Monocytes # (Auto) 0.6 0.1-1.0 K/uL Eosinophils # (Auto) 0.13 0.00-0.70 K/uL Basophils # (Auto) 0.03 0.00-0.20 K/uL Absolute Immature Granulocyte (auto 0.02 0-1 K/uL Nucleated Red Blood Cells 0.0 0.0-0.19 % Sodium Level 141 136-145 mmol/L Potassium Level 4.1 3.5-5.1 mmol/L Chloride Level 105 101-111 mmol/L Carbon Dioxide Level 31 21-32 mmol/L Blood Urea Nitrogen 12 7-18 mg/dL Creatinine 1.0 0.5-1.0 mg/dL Glomerular Filtration Rate Calc 64 >90 mL/min Random Glucose 97 70-105 mg/dL Total Calcium 9.2 8.5-10.1 mg/dL Magnesium Level 1.90 1.80-2.40 mg/dL Total Bilirubin 0.5 0.2-1.0 mg/dL Aspartate Amino Transf (AST/SGOT) 12 10-37 U/L Alanine Aminotransferase (ALT/SGPT) 20 12-78 U/L Alkaline Phosphatase 96 50-136 U/L Total Protein 6.9 6.0-8.3 g/dL Albumin 3.1 L 3.5-5.0 g/dL Prothrombin Time 10.9 9.6-11.6 SEC Prothromb Time International Ratio 1.01 0.85-1.15 Activated Partial Thromboplast Time 29.6 26.3-35.5 SEC Hemoglobin A1c 6.5 H 4.0-6.0 % Estimated Average Glucose (eAG) 140 H 70-126 mg/dL Phosphorus Level 4.1 2.5-4.9 mg/dL Urine Color LIGHT-YELLOW YELLOW Urine Appearance CLEAR CLEAR Urine pH 7.0 5.0-8.0 Urine Specific [place] 1.020 1.001-1.031 Urine Protein 30 H NEGATIVE mg/dL Urine Glucose (UA) NEGATIVE NEGATIVE mg/dL Urine Ketones NEGATIVE NEGATIVE mg/dL Urine Occult Blood SMALL H NEGATIVE Urine Nitrate NEGATIVE NEGATIVE Urine Bilirubin NEGATIVE NEGATIVE mg/dL Urine Urobilinogen 0.2 0.2-1.0 mg/dL Urine Leukocyte Esterase 250 H NEGATIVE Allie/uL Urine RBC 11-25 H 0-1 /HPF Urine WBC 6-10 H 0-1 /HPF Urine Squamous Epithelial Cells FEW 0-2 /HPF Urine Bacteria RARE None Seen /HPF Test 02/07/24 19:00 Range/Units Direct Bilirubin 0.1 0.0-0.3 mg/dL Lipase 30 16-77 U/L Current Medications Medications (Trade) Dose Ordered Sig/Louis Route PRN Reason Start Time Stop Time Status Last Admin Dose Admin Acetaminophen (TYLenol 650MG SUPPOSITORY) 650 mg Q6H PRN RC MILD PAIN (1-3) 02/08/24 00:30 03/09/24 00:29 Ceftriaxone Sodium (ROCEphine 1G INJ) 1 gm Q24H IV 02/08/24 22:00 02/18/24 21:59 02/08/24 22:25 1 GM Famotidine (Pepcid 20mg Vial) 20 mg DAILY IV 02/08/24 09:00 03/09/24 08:59 02/09/24 09:19 20 MG Hydralazine HCl (APRESOLine 20MG INJ) 10 mg Q6H PRN IV For:SBP above 160;DBP above 90 02/08/24 00:30 03/09/24 00:29 Insulin Human Regular (humuLIN R 100 UNIT/ML 3ML) INSULIN SLIDING SCAL... ACHS SQ 02/08/24 07:30 03/09/24 07:29 Lactated Ringer's 1,000 ml @ 100 mls/hr Q10H IV 02/08/24 00:30 03/09/24 00:29 02/08/24 09:39 100 MLS/HR Morphine Sulfate (morPHINE 2MG SYG) 2 mg ONCE IVP 02/07/24 20:30 02/07/24 23:59 DC 02/07/24 20:38 2 MG Morphine Sulfate (morPHINE 2MG SYG) 2 mg Q4H PRN IVP SEVERE PAIN (7-10) 02/08/24 00:30 02/15/24 00:29 02/09/24 02:43 2 MG Ondansetron HCl (zoFRAN 4MG INJ) 4 mg Q6H PRN IV NAUSEA/VOMITING 02/08/24 00:30 03/09/24 00:29 Tamsulosin HCl (FloMAX) 0.4 mg ONCE PO 02/07/24 20:30 02/07/24 23:59 DC 02/07/24 20:37 0.4 MG DIAGNOSTICS / RADIOLOGY: [ ] ASSESSMENT: [ Right hydronephrosis, POA Right hydroureter with 11 mm renal stone in the right proximal ureter, POA Nephrolithiasis, [address] on 02/07/2024, POA Urinary tract infection, POA Diabetes mellitius type2 hyperlipidemia ] PLAN: [ Admit to: Medical-surgical floor Consults: Urologist Antibiotics: Rocephin Tests: None NEURO: Minimize central acting medications as possible. Fall Precautions. Well lighted room through the day and minimize interruptions through the night to prevent acute delirium. PULMONARY: Supplemental 02 as needed BiPAP as necessary, for respiratory distress Titrate Fio2 to keep Spo2 > or = 90% DuoNebs and CPT as needed IS hourly while awake for pulmonary hygiene Out of bed to chair as tolerated VAP Bundle Maintain aspiration precautions at all times CARDIOVASCULAR: Follow hemodynamics. Vital signs per facility protocol GI & NUTRITION: Continue nutritional support Aspirations precautions Prokinetic agents and laxatives as needed KIDNEYS & ELECTROLYTES: Strict monitoring of intake and output Daily weights Avoid nephrotoxic agents Monitor electrolytes and replace as needed Goal urine output of 30mL/hr or 0.5mL/kg/hr Medications to be dosed according to renal function. Avoid contrast if possible ENDOCRINE: Maintain blood glucose between 100-180 at all times. Insulin sliding scale for blood glucose management Hypoglycemia and hyperglycemia protocol in place INFECTIOUS DISEASE: Trend temperature, WBC and procalcitonin level Follow cultures, deescalate antibiotics as soon as possible. Panculture if new onset fever HEMATOLOGY & COAGULATION: Monitor H&H. Keep Hgb > 7 Transfuse 1 unit of PRBC for Hgb < 7 Transfuse 1 pack of platelets of platelets < 20, 000 Watch for any signs and symptoms of bleeding SKIN: Pressure ulcer prevention per facility protocol Specialty mattress as needed Treatment plan discussed with patient and family at the bedside Medications to be reconciled once obtained by patient and/or family and available to be reconciled in computer p.r.n. medication for pain nausea and vomiting Questions were answered We will continue to monitor the patient closely Practice Director for disposition Rehab: PT/OT GI: PPI DVT: SCD's Code Status: Full Resuscitation Disposition: TBD Prognosis: Guarded ] ATTESTATION BY PHYSICIAN I have seen and examined the patient. I reviewed the documentation, medical decision making, and treatment plan as noted by the mid-level provider above. I agree with the findings and plan of care. MD SANDY Reaves [employer] Feb 09, 2024 13:36
[2024-02-09 16:00] VITALS: BP 142/81; PULSE 95; RESP 20; TEMP 98.6
[2024-02-09 20:00] VITALS: BP 148/82; PULSE 77; RESP 20; TEMP 98; O2SAT 94
[2024-02-10] VITALS: BP 124/71; PULSE 64; RESP 20; TEMP 98.3
[2024-02-10 04:00] VITALS: BP 127/72; PULSE 65; RESP 20; TEMP 98.1
[2024-02-10 05:56] LABS: BASOPHILS # (AUTO) 0.03 K/uL (0.00-0.20); BASOPHILS % (AUTO) 0.5 % (0.0-5.0); EOSINOPHILS # (AUTO) 0.16 K/uL (0.00-0.70); EOSINOPHILS % (AUTO) 2.6 % (0.0-8.0); HEMATOCRIT 36.2 % (36-48); IMMATURE GRANULOCYTE ABSOLUTE 0.02 K/uL (0-1); LYMPHOCYTES # (AUTO) 1.8 K/uL (1.0-4.8); LYMPHOCYTES % (AUTO) 28.7 % (21.0-51.0); MEAN CORPUSCULAR HEMOGLOBIN 30.7 pg (27.0-33.0); MEAN CORPUSCULAR HGB CONC 31.5 g/dL (32.0-36.0); MEAN CORPUSCULAR VOLUME 97.6 fL (79-99); MONOCYTES # (AUTO) 0.5 K/uL (0.1-1.0); MONOCYTES % (AUTO) 8.3 % (3.0-13.0); NEUTROPHILS # (AUTO) 3.7 K/uL (1.8-7.7); NEUTROPHILS % (AUTO) 59.6 % (40.0-77.0); PLATELET COUNT (AUTO) 262 K/uL (130-400); RED BLOOD CELL COUNT(AUTO) 3.71 MIL/uL (4.00-5.50); WHITE BLOOD COUNT (AUTO) 6.1 K/uL (4.8-10.8)
[2024-02-10 06:46] LABS: ALBUMIN 3.1 g/dL (3.5-5.0); BILIRUBIN,TOTAL 0.3 mg/dL (0.2-1.0); MAGNESIUM 1.9 mg/dL (1.80-2.40); POTASSIUM 3.7 mmol/L (3.5-5.1)
[2024-02-10 08:00] VITALS: BP 131/77; PULSE 65; RESP 18; TEMP 98.4; O2SAT 94
[2024-02-10 12:00] VITALS: BP 158/85; PULSE 74; RESP 18; TEMP 98.2
[2024-02-10] MEDS: PoTASSium chloRIDE 20MEQ ER 20 MEQ ERTAB PO ONE (12:26)
--- NOTE | 2024-02-10 12:32 | PN ---
[facility] PROGRESS NOTE Date of Service: Feb 10, 2024 Time of Service: 12:[address] Reaves SUBJECTIVE: [ 02/06 Ms. Brambila is a 64-year-old female that was seen and examined today on 02/07/2024. Patient is a good historian and personal health. Patient reports that she came to the emergency department with a chief complaint of abdominal pain. Onset wastoday at 7:00 p.m.. Location is suprapubic. Duration is on and off. Character is described as cramping. There was no alleviating factors. There was no aggravating factors. Patient reports associated nausea and vomiting x3 episodes. Today in the emergency department CBC unremarkable, chemistry unremarkable, urinalysis positive for leukocyte esterase and WBCs 6-10 under high-powered microscopy. CT of abdomen and pelvis shows right hydronephrosis with right hydroureter with the 11 mm renal stone in the right proximal ureter. For this reason emergency room requested patient be admitted to they could be evaluated by urology service. 02/07 patient was seen by nurse practitioner and physician during rounding in emergency department in room ED three lying in the bed. CT abdomen/pelvis showed right hydroureter stone measuring 11 mm and also right hydronephrosis. Chest x-ray] normal single-view. We are waiting for further recommendations of urologist regarding the stone. We will continue to monitor patient in the meantime. A.m. labs. At this moment patient is on Rocephin UA positive for leukocytosis 02/08 patient was seen by nurse practitioner physician. Patient is pending nephrostomy tube placement on right on 02/11/24 by IR. Vital signs stable. WBC today is 6.9 hemoglobin 11.1 hematocrit 34.5. Electrolyte within normal limits. Final urine culture negative. Patient denies any shortness of breath, chest pain, nausea, vomiting or any other discomfort at this moment other than right abdominal pain with shooting pain which is relieved when receive pain medications. We will continue to monitor patient in the meantime. A.m. labs 02/09 patient was seen by nurse practitioner and physician during rounding in room 429 comfortably lying in bed. Per neurologist recommendation patient is pending IR nephrostomy tube placement on Sunday02/11/2024. We will repeat a.m. labs. Anticipated discharge within 24 hours. REVIEW OF SYSTEMS CONSTITUTIONAL: Denies fevers, chills, or night sweats. No unintentional weight loss reported. NEUROLOGICAL: Denies headache, amaurosis fugax, motor weakness, sensory deficit, vertigo/spinning sensation, gait abnormalities, or tremors. ENT: No hearing loss, otalgia, otorrhea, rhinitis, rhinorrhea, hoarseness, or sore throat. CARDIOVASCULAR: Denies any exertional angina, dyspnea on exertion, orthopnea, paroxysmal nocturnal dyspnea, palpitations, life-threatening arrhythmias, claudication. PULMONARY: Denies any shortness of breath, cough, phlegm/sputum, hemoptysis, pleuritic chest pain. SLEEP: Denies morning headaches, daytime somnolence or napping. Denies diffi culty falling asleep, staying asleep, waking from sleep. Denies knowledge of snoring. GASTROINTESTINAL: Denies any type of dysphagia to either liquids or solids. Denies nausea, vomiting, pyrosis, early satiety, abdominal pain, diarrhea, constipation, or changes in stool consistency or caliber. Denies coffee-ground emesis, hematemesis, hematochezia, or melanotic stools. GENITOURINARY: Denies frequency, urgency, nocturia, hematuria or incontinence (Storage/Irritative symptoms.) Low urinary stream, straining to void, urinary intermittency or hesitancy, splitting of the voiding stream, terminal dribbling. ENDOCRINOLOGIC: Denies polyuria, polydipsia, polyphagia or heat/cold int olerances. HEMATOLOGIC: Denies thrombophilia/previous clots, or coagulopathy/bleeding disorders. ONCOLOGIC: Denies personal history of malignancy. DERMATOLOGIC: Denies rashes or pruritus. PSYCHIATRIC: Denies any suicidal or homicidal ideation. Denies hallucinations. PHYSICAL EXAM GENERAL APPEARANCE: The patient is awake, alert, and oriented, in no acute cardiopulmonary distress. NEUROLOGICAL: Cranial nerves II-XII grossly intact. Motor is 5/5 in bilateral upper and lower extremities proximal to distal. No sensory deficits. HEENT: Face is symmetric. Pupils are equal and reactive. Extraocular movements are intact. NECK: Supple. No JVD. No thyromegaly. No submental, submandibular, pre- /postauricular, occipital or supraclavicular lymphadenopathy. CHEST: Normal chest expansion. No Telemetry. LUNGS: Absence of any rales, rhonchi or any wheezing. CARDIOVASCULAR: Regular. S1 and S2 normal. No appreciable rubs, murmurs or gallops. ABDOMEN: Soft, nontender, and nondistended. There is no rebound, voluntary guarding, or rigidity. : Deferred. No Pa. EXTREMITIES: Non-edematous and not cyanotic. No clubbing. Good capillary refill. SKIN: No skin breakdown. Vital Signs (last 8hr) Date Time Temp Pulse Resp B/P (MAP) Pulse Ox O2 Delivery O2 Flow Rate FiO2 02/10/24 08:00 98.4 65 18 131/77 94 Room Air 21 02/10/24 08:00 94 Room Air* 0 21 LABS: Laboratory: Test 02/10/24 12:04 02/10/24 04:55 Range/Units Whole Blood Glucose 126 H 70-110 MG/DL White Blood Count 6.1 4.8-10.8 K/uL Red Blood Count 3.71 L 4.00-5.50 MIL/uL Hemoglobin 11.4 L 12.0-16.0 g/dL Hematocrit 36.2 36-48 % Mean Corpuscular Volume 97.6 79-99 fL Mean Corpuscular Hemoglobin 30.7 27.0-33.0 pg Mean Corpuscular Hemoglobin Concent 31.5 L 32.0-36.0 g/dL Red Cell Distribution Width 12.0 11.0-15.5 % Platelet Count 262 130-400 K/uL Mean Platelet Volume 11.4 H 7.5-10.5 fL Immature Granulocyte % (Auto) 0.3 0-1 % Neutrophils (%) (Auto) 59.6 40.0-77.0 % Lymphocytes (%) (Auto) 28.7 21.0-51.0 % Monocytes (%) (Auto) 8.3 3.0-13.0 % Eosinophils (%) (Auto) 2.6 0.0-8.0 % Basophils (%) (Auto) 0.5 0.0-5.0 % Neutrophils # (Auto) 3.7 1.8-7.7 K/uL Lymphocytes # (Auto) 1.8 1.0-4.8 K/uL Monocytes # (Auto) 0.5 0.1-1.0 K/uL Eosinophils # (Auto) 0.16 0.00-0.70 K/uL Basophils # (Auto) 0.03 0.00-0.20 K/uL Absolute Immature Granulocyte (auto 0.02 0-1 K/uL Nucleated Red Blood Cells 0.0 0.0-0.19 % Sodium Level 135 L 136-145 mmol/L Potassium Level 3.7 3.5-5.1 mmol/L Chloride Level 101 101-111 mmol/L Carbon Dioxide Level 34 H 21-32 mmol/L Blood Urea Nitrogen 15 7-18 mg/dL Creatinine 1.0 0.5-1.0 mg/dL Glomerular Filtration Rate Calc 64 >90 mL/min Random Glucose 97 70-105 mg/dL Total Calcium 9.4 8.5-10.1 mg/dL Magnesium Level 1.90 1.80-2.40 mg/dL Total Bilirubin 0.3 0.2-1.0 mg/dL Aspartate Amino Transf (AST/SGOT) 12 10-37 U/L Alanine Aminotransferase (ALT/SGPT) 18 12-78 U/L Alkaline Phosphatase 95 50-136 U/L Total Protein 7.0 6.0-8.3 g/dL Albumin 3.1 L 3.5-5.0 g/dL Current Medications Medications (Trade) Dose Ordered Sig/[place] Route PRN Reason Start Time Stop Time Status Last Admin Dose Admin Acetaminophen (TYLenol 650MG SUPPOSITORY) 650 mg Q6H PRN RC MILD PAIN (1-3) 02/08/24 00:30 03/09/24 00:29 Ceftriaxone Sodium (ROCEphine 1G INJ) 1 gm Q24H IV 02/08/24 22:00 02/18/24 21:59 02/09/24 20:22 1 GM Famotidine (Pepcid 20mg Vial) 20 mg DAILY IV 02/08/24 09:00 03/09/24 08:59 02/10/24 08:58 20 MG Hydralazine HCl (APRESOLine 20MG INJ) 10 mg Q6H PRN IV For:SBP above 160;DBP above 90 02/08/24 00:30 03/09/24 00:29 Insulin Human Regular (humuLIN R 100 UNIT/ML 3ML) INSULIN SLIDING SCAL... ACHS SQ 02/08/24 07:30 03/09/24 07:29 Lactated Ringer's 1,000 ml @ 100 mls/hr Q10H IV 02/08/24 00:30 03/09/24 00:29 02/08/24 09:39 100 MLS/HR Morphine Sulfate (morPHINE 2MG SYG) 2 mg ONCE IVP 02/07/24 20:30 02/07/24 23:59 DC 02/07/24 20:38 2 MG Morphine Sulfate (morPHINE 2MG SYG) 2 mg Q4H PRN IVP SEVERE PAIN (7-10) 02/08/24 00:30 02/15/24 00:29 02/09/24 02:43 2 MG Ondansetron HCl (zoFRAN 4MG INJ) 4 mg Q6H PRN IV NAUSEA/VOMITING 02/08/24 00:30 03/09/24 00:29 Tamsulosin HCl (FloMAX) 0.4 mg ONCE PO 02/07/24 20:30 02/07/24 23:59 DC 02/07/24 20:37 0.4 MG DIAGNOSTICS / RADIOLOGY: [ ] ASSESSMENT: [ Right hydronephrosis, POA Right hydroureter with 11 mm renal stone in the right proximal ureter, POA Nephrolithiasis, [address] on 02/07/2024, POA Urinary tract infection, POA Diabetes mellitius type2 hyperlipidemia ] PLAN: [ Admit to: Medical-surgical floor Consults: Urologist Antibiotics: Rocephin Tests: None NEURO: Minimize central acting medications as possible. Fall Precautions. Well lighted room through the day and minimize interruptions through the night to prevent acute delirium. PULMONARY: Supplemental 02 as needed BiPAP as necessary, for respiratory distress Titrate Fio2 to keep Spo2 > or = 90% DuoNebs and CPT as needed IS hourly while awake for pulmonary hygiene Out of bed to chair as tolerated VAP Bundle Maintain aspiration precautions at all times CARDIOVASCULAR: Follow hemodynamics. Vital signs per facility protocol GI & NUTRITION: Continue nutritional support Aspirations precautions Prokinetic agents and laxatives as needed KIDNEYS & ELECTROLYTES: Strict monitoring of intake and output Daily weights Avoid nephrotoxic agents Monitor electrolytes and replace as needed Goal urine output of 30mL/hr or 0.5mL/kg/hr Medications to be dosed according to renal function. Avoid contrast if possible ENDOCRINE: Maintain blood glucose between 100-180 at all times. Insulin sliding scale for blood glucose management Hypoglycemia and hyperglycemia protocol in place INFECTIOUS DISEASE: Trend temperature, WBC and procalcitonin level Follow cultures, deescalate antibiotics as soon as possible. Panculture if new onset fever HEMATOLOGY & COAGULATION: Monitor H&H. Keep Hgb > 7 Transfuse 1 unit of PRBC for Hgb < 7 Transfuse 1 pack of platelets of platelets < 20, 000 Watch for any signs and symptoms of bleeding SKIN: Pressure ulcer prevention per facility protocol Specialty mattress as needed Treatment plan discussed with patient and family at the bedside Medications to be reconciled once obtained by patient and/or family and available to be reconciled in computer p.r.n. 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 I reviewed the documentation, medical decision making, and treatment plan as noted by the mid-level provider above. I agree with the findings and plan of care. Colleen Reaves MD, [employer] Feb 10, 2024 12:32
--- NOTE | 2024-02-10 15:26 | NUR ---
DCP-Home Pt awake, alert, oriented lives with brothjay Brambila [phone]. Pt states able to perform ADLs currently employed at [employer]. She anticipates discharge plan is for Home. Addendum: 02/10/24 at 1529 by KESHA BARRON RN Amended: Links added.
[2024-02-10 15:55] VITALS: BP 148/85; PULSE 80; RESP 20; TEMP 98.3
[2024-02-10 20:00] VITALS: BP 152/75; PULSE 67; RESP 20; TEMP 98; O2SAT 94
[2024-02-11] VITALS (10 sets, daily range): BP systolic 132–150; BP diastolic 70–90; PULSE 59–73; RESP 18–20; TEMP 97.6–98.4; O2SAT 97
[2024-02-11 03:58] LABS: BASOPHILS # (AUTO) 0.03 K/uL (0.00-0.20); BASOPHILS % (AUTO) 0.5 % (0.0-5.0); EOSINOPHILS # (AUTO) 0.21 K/uL (0.00-0.70); EOSINOPHILS % (AUTO) 3.7 % (0.0-8.0); HEMATOCRIT 35.4 % (36-48); IMMATURE GRANULOCYTE ABSOLUTE 0.01 K/uL (0-1); LYMPHOCYTES # (AUTO) 1.9 K/uL (1.0-4.8); LYMPHOCYTES % (AUTO) 32.8 % (21.0-51.0); MEAN CORPUSCULAR HEMOGLOBIN 31.1 pg (27.0-33.0); MEAN CORPUSCULAR HGB CONC 31.9 g/dL (32.0-36.0); MEAN CORPUSCULAR VOLUME 97.5 fL (79-99); MONOCYTES # (AUTO) 0.5 K/uL (0.1-1.0); MONOCYTES % (AUTO) 9.2 % (3.0-13.0); NEUTROPHILS # (AUTO) 3.1 K/uL (1.8-7.7); NEUTROPHILS % (AUTO) 53.6 % (40.0-77.0); PLATELET COUNT (AUTO) 276 K/uL (130-400); RED BLOOD CELL COUNT(AUTO) 3.63 MIL/uL (4.00-5.50); WHITE BLOOD COUNT (AUTO) 5.7 K/uL (4.8-10.8)
[2024-02-11 04:09] LABS: ALBUMIN 3.1 g/dL (3.5-5.0); BILIRUBIN,TOTAL 0.3 mg/dL (0.2-1.0); CREATININE 1.1 mg/dL (0.5-1.0); MAGNESIUM 1.9 mg/dL (1.80-2.40); POTASSIUM 4.1 mmol/L (3.5-5.1); TOTAL PROTEIN, SERUM 7.2 g/dL (6.0-8.3)
[2024-02-11 04:10] LABS: INR <= 0.93 (0.85-1.15); PROTHROMBIN TIME 10.4 SEC (9.6-11.6)
[2024-02-11 04:12] LABS: PARTIAL THROMBOPLASTIN TIME 31.6 SEC (26.3-35.5)
[2024-02-11] MEDS ORDERED: AMOX1TAB16 PO (12:15)
--- NOTE | 2024-02-11 12:18 | DS ---
Discharge Summary Hospital Course Summary: DATE OF ADMISSION:[02/07/2024] DATE OF DISCHARGE:[02/11/2024] DISPOSITION:[Home] CONDITION:[Medically stable] CONSULTANTS:[Urologist] FOLLOW UP APPOINTMENTS:[PCP 2 to 3 days. Urologist within 1 to 2 weeks] PROCEDURES:[IR nephrostomy tube placement 02/11/2024] IMAGING: report attached to summary MICROBIOLOGY: report attached to summary ACTIVITY:[Independent] HOME MEDICATIONS: see med recc NEW MEDICATIONS:[See med rec] EMERGENCY INSTRUCTIONS: The patient was instructed to present to the nearest Emergency departmentr or call 911 once their symptoms will return or worsen Rfid Engineer(s): Ms. Brambila is a 64-year-old female that was seen and examined today on 2023. Patient is a good historian and personal health. Patient reports that she came to the emergency department with a chief complaint of abdominal pain. Onset wastoday at 7:00 p.m.. Location is suprapubic. Duration is on and off. Character is described as cramping. There was no alleviating factors. There was no aggravating factors. Patient reports associated nausea and vomiting x3 episodes. Today in the emergency department CBC unremarkable, chemistry unremarkable, urinalysis positive for leukocyte esterase and WBCs 6-10 under high-powered microscopy. CT of abdomen and pelvis shows right hydronephrosis with right hydroureter with the 11 mm renal stone in the right proximal ureter. For this reason emergency room requested patient be admitted to they could be evaluated by urology service. Throughout the hospitalization patient's WBCs went down to 5.7. Per urologist patient is pending an IR nephrostomy tube placement and can be discharged home. Once tube will be placed patient to be discharged home follow up with PCP in 2 to 3 days. Follow up with the urologist within 1 to 2 weeks. Patient denies any shortness of breath, chest pain, nausea, vomiting or any other discomfort. Procedure(s): REVIEW OF SYSTEMS CONSTITUTIONAL: Denies fevers, chills, or night sweats. No unintentional weight loss reported. NEUROLOGICAL: Denies headache, amaurosis fugax, motor weakness, sensory deficit, vertigo/spinning sensation, gait abnormalities, or tremors. ENT: No hearing loss, otalgia, otorrhea, rhinitis, rhinorrhea, hoarseness, or sore throat. CARDIOVASCULAR: Denies any exertional angina, dyspnea on exertion, orthopnea, paroxysmal nocturnal dyspnea, palpitations, life-threatening arrhythmias, claudication. PULMONARY: Denies any shortness of breath, cough, phlegm/sputum, hemoptysis, pleuritic chest pain. SLEEP: Denies morning headaches, daytime somnolence or napping. Denies difficulty falling asleep, staying asleep, waking from sleep. Denies knowledge of snoring. GASTROINTESTINAL: Denies any type of dysphagia to either liquids or solids. Denies nausea, vomiting, pyrosis, early satiety, abdominal pain, diarrhea, constipation, or changes in stool consistency or caliber. Denies coffee-ground emesis, hematemesis, hematochezia, or melanotic stools. GENITOURINARY: Denies frequency, urgency, nocturia, hematuria or incontinence (Storage/Irritative symptoms.) Low urinary stream, straining to void, urinary intermittency or hesitancy, splitting of the voiding stream, terminal dribbling. ENDOCRINOLOGIC: Denies polyuria, polydipsia, polyphagia or heat/cold intolerances. HEMATOLOGIC: Denies thrombophilia/previous clots, or coagulopathy/bleeding disorders. ONCOLOGIC: Denies personal history of malignancy. DERMATOLOGIC: Denies rashes or pruritus. PSYCHIATRIC: Denies any suicidal or homicidal ideation. Denies hallucinations. PHYSICAL EXAM GENERAL APPEARANCE: The patient is awake, alert, and oriented, in no acute cardiopulmonary distress. NEUROLOGICAL: Cranial nerves II-XII grossly intact. Motor is 5/5 in bilateral upper and lower extremities proximal to distal. No sensory deficits. HEENT: Face is symmetric. Pupils are equal and reactive. Extraocular movements are intact. NECK: Supple. No JVD. No thyromegaly. No submental, submandibular, pre- /postauricular, occipital or supraclavicular lymphadenopathy. CHEST: Normal chest expansion. No Telemetry. LUNGS: Absence of any rales, rhonchi or any wheezing. CARDIOVASCULAR: Regular. S1 and S2 normal. No appreciable rubs, murmurs or gallops. ABDOMEN: Soft, nontender, and nondistended. There is no rebound, voluntary guarding, or rigidity. : Deferred. No Pa. EXTREMITIES: Non-edematous and not cyanotic. No clubbing. Good capillary refill. SKIN: No skin breakdown. Assessment/Plan: ASSESSMENT: [ Right hydronephrosis, POA Right hydroureter with 11 mm renal stone in the right proximal ureter, POA Nephrolithiasis, [address] on 02/07/2024, POA Urinary tract infection, POA Diabetes mellitius type2 hyperlipidemia ] PLAN: [ Admit to: Medical-surgical floor Consults: Urologist Antibiotics: Rocephin Tests: IR nephrostomy tube placement. NEURO: Minimize central acting medications as possible. Fall Precautions. Well lighted room through the day and minimize interruptions through the night to prevent acute delirium. PULMONARY: Supplemental 02 as needed BiPAP as necessary, for respiratory distress Titrate Fio2 to keep Spo2 > or = 90% DuoNebs and CPT as needed IS hourly while awake for pulmonary hygiene Out of bed to chair as tolerated VAP Bundle Maintain aspiration precautions at all times CARDIOVASCULAR: Follow hemodynamics. Vital signs per facility protocol GI & NUTRITION: Continue nutritional support Aspirations precautions Prokinetic agents and laxatives as needed KIDNEYS & ELECTROLYTES: Strict monitoring of intake and output Daily weights Avoid nephrotoxic agents Monitor electrolytes and replace as needed Goal urine output of 30mL/hr or 0.5mL/kg/hr Medications to be dosed according to renal function. Avoid contrast if possible ENDOCRINE: Maintain blood glucose between 100-180 at all times. Insulin sliding scale for blood glucose management Hypoglycemia and hyperglycemia protocol in place INFECTIOUS DISEASE: Trend temperature, WBC and procalcitonin level Follow cultures, deescalate antibiotics as soon as possible. Panculture if new onset fever HEMATOLOGY & COAGULATION: Monitor H&H. Keep Hgb > 7 Transfuse 1 unit of PRBC for Hgb < 7 Transfuse 1 pack of platelets of platelets < 20, 000 Watch for any signs and symptoms of bleeding SKIN: Pressure ulcer prevention per facility protocol Specialty mattress as needed Treatment plan discussed with patient and family at the bedside Medications to be reconciled once obtained by patient and/or family and available to be reconciled in computer p.r.n. medication for pain nausea and vomiting Questions were answered We will continue to monitor the patient closely Pattern Drafter for disposition Rehab: PT/OT GI: PPI DVT: SCD's Code Status: Full Resuscitation Disposition: TBD Prognosis: Guarded ] Home Medications: Reported Medications Ondansetron (Ondansetron Odt) 4 Mg Tab.rapdis, 0.5 TAB PO TID PRN for nausea/vomiting for 4 Days, #8 TAB 0 Refills 02/07/24 Metformin HCl (Metformin HCl) 1,000 Mg Tablet, 500 MG PO BID, TAB 02/07/24 Atorvastatin Calcium (Atorvastatin Calcium) 20 Mg Tablet, 1 TAB PO HS for 30 Days, #30 TAB 0 Refills 02/07/24 Time spent arranging discharge: 31-60 minutes ATTESTATION BY PHYSICIAN I have seen and examined the patient. I reviewed the documentation, medical decision making, and treatment plan as noted by the mid-level provider above. I agree with the findings and plan of care. CARMEN TAN MD, [facility] Feb 11, 2024 12:18
--- NOTE | 2024-02-11 13:30 | NUR ---
OFF UNIT TAKEN OFF UNIT TO IR FOR RIGHT NEPHROSTOMY TUBE PLACEMENT
[2024-02-11] MEDS ORDERED: HEParin-NS 1,000 UNIT/500 ML 500 ML IV ONE (13:50)
[2024-02-11] MEDS ORDERED: IOHEXOL-350 50ML VIAL IV ONE (13:50)
[2024-02-11] MEDS ORDERED: LIDOCAINE HCL 400MG/20ML VIAL ONE (13:50)
[2024-02-11] MEDS ORDERED: FENTanyl CITRate PF 50 MCG/1 ML 2ML VIAL ONE (13:51)
[2024-02-11] MEDS ORDERED: MIDAZOLAM HCL 1 MG/ML 2ML VIAL ONE (13:51)
--- NOTE | 2024-02-11 14:30 | NUR ---
RETURN TO UNIT BACK FROM IR. NEPHROSTOMY DRAIN IN PLACE TO RIGHT SIDE
--- NOTE | 2024-02-11 14:45 | PRN ---
US NEPHROSTOMY TUBE PLACEMENT REASON: HYDRO right hydronephrosis. Ureteral lithiasis. COMPARISON: None TECHNIQUE: Ultrasound and fluoroscopic guidance with placement of right nephrostomy. FINDINGS: Moderate hydronephrosis. PROCEDURE: Informed consent was obtained from the patient following explanation of risks, benefits, complications. Timeout performed by catheter lab nursing personnel. Patient received intravenous titrated doses of Versed and fentanyl intravenously administered by nursing personnel continuous monitoring of the oxygen saturation , cardiac status, respiratory status. Patient placed prone on the procedure table and the right flank was prepped and draped in sterile fashion. Local anesthesia performed with 10 mL of 1% lidocaine subcutaneous. Under direct ultrasound guidance, 22-gauge needle was passed into the mid renal calyx. Following guidewire placement, the remainder the procedure was performed under fluoroscopic guidance. Once the guidewire was placed and visualized under fluoroscopy, the needle was removed. AccuStick trocar was then advanced over the guidewire and into the renal collecting system. Inner stylette and trocar were removed. Aspirate obtained and submitted for Gram stain and cultures. Contrast media injected and confirms good positioning of the catheter within the renal pelvis. Guidewire was placed under fluoroscopy. Fascial dilatation performed. 8 [place] APDL catheter passed over the guidewire and coiled within the renal pelvis. Catheter was attached to external drainage bag. Retention suture and sterile dressing applied. Patient tolerated procedure well without evidence of complication. Estimated blood loss: Less than 5 mL. Total fluoroscopic time: 1.2 minutes. IMPRESSION: Right hydronephrosis with obstructing calculus of the right mid ureter. Placement of 8 Telugu APDL catheter within the right renal pelvis. Specimen submitted for cultures and Gram stain. DAX COREA DO Feb 11, 2024 14:45
--- NOTE | 2024-02-11 14:50 | HMCIMG ---
REASON: HYDRO right hydronephrosis. Ureteral lithiasis. COMPARISON: None TECHNIQUE: Ultrasound and fluoroscopic guidance with placement of right nephrostomy. FINDINGS: Moderate hydronephrosis. PROCEDURE: Informed consent was obtained from the patient following explanation of risks, benefits, complications. Timeout performed by catheter lab nursing personnel. Patient received intravenous titrated doses of Versed and fentanyl intravenously administered by nursing personnel continuous monitoring of the oxygen saturation, cardiac status, respiratory status. Patient placed prone on the procedure table and the right flank was prepped and draped in sterile fashion. Local anesthesia performed with 10 mL of 1% lidocaine subcutaneous. Under direct ultrasound guidance, 22-gauge needle was passed into the mid renal calyx. Following guidewire placement, the remainder the procedure was performed under fluoroscopic guidance. Once the guidewire was placed and visualized under fluoroscopy, the needle was removed. AccuStick trocar was then advanced over the guidewire and into the renal collecting system. Inner stylette and trocar were removed. Aspirate obtained and submitted for Gram stain and cultures. Contrast media injected and confirms good positioning of the catheter within the renal pelvis. Guidewire was placed under fluoroscopy. Fascial dilatation performed. 8 [place] APDL catheter passed over the guidewire and coiled within the renal pelvis. Catheter was attached to external drainage bag. Retention suture and sterile dressing applied. Patient tolerated procedure well without evidence of complication. Estimated blood loss: Less than 5 mL. Total fluoroscopic time: 1.2 minutes. IMPRESSION: Right hydronephrosis with obstructing calculus of the right mid ureter. Placement of 8 [place] APDL catheter within the right renal pelvis. Specimen submitted for cultures and Gram stain.
--- NOTE | 2024-02-11 16:57 | NUR ---
RX CALLED RX CALLED TO [facility] IN [place] FOR IBUPROFN 800MG Q8HRS PO X 5 DAYS
--- NOTE | 2024-02-11 16:59 | NUR ---
PT REQUESTING TO LEAVE PT REQUESTING TO LEAVE PRIOR TO POST OP VITALS COMPLETED. STATES HAVE TO MOLDER FOAM RUBBER RX FROM PHARMACY BEFOR IT CLOSES. STATES CAN NOT MAKE 2 TRIPS TO [facility]. PT/FAMILY ACKOWLEDGES RISK OF LEAVING. D/C PAPERWORK SIGNED AND IV REMOVED
== END 2024-02-11 16:00 | disposition home or self-care (01) | DRG 690 ==
LOC: EDH 18:43 → EDHIP 21:59 → 4AH 02-08 15:45
PROVIDERS: ADMIT Internal Medicine; ATTEND Internal Medicine
PROC: 0T9330Z Drainage of Right Kidney Pelvis with Drainage Device, Percutaneous Approach (ICD-10-PCS; principal; 2024-02-11)
DX: N13.6 Pyonephrosis (principal); E11.9 Type 2 diabetes mellitus without complications; E78.5 Hyperlipidemia, unspecified; Z79.899 Other long term (current) drug therapy; N20.0 Calculus of kidney
CPT/HCPCS: 36415; 50432; 71045; 74176; 80048; 80053; 80076; 81001; 82948; 83036; 83690; 83735; 84100; 85025; 85610; 85730; 86850; 86900; 86901; 87071; 87086; 87101; 87205; 87206; 96374; 96375; 99156; 99157; 99285; C1894; G0378; J0696; J1644; J1885; J2250; J2270; J2405; J3010; J3490; J7030; J7120; Q9967; C1729

== ENCOUNTER → 2024-02-25 | Outpatient (CLI) | payer OTHER ==
[~2024-02-25] MED LIST: AMOX1TAB16 PO; ATOR20TA65 PO; METF-446 PO; ONDA-243 PO
--- NOTE | 2024-02-25 12:49 | HMCIMG ---
ABD 1VW REASON: UNSPECIFIED HYDRONEPHROSIS FINDINGS: Single image of the abdomen was obtained. There is a large amount solid fecal material in the colon, overlying the right kidney. There is a nephrostomy catheter present on the right. There are no visible stones although these could be obscured by the overlying fecal material. Bones and soft tissues appear otherwise unremarkable. IMPRESSION: 1. Large amount solid fecal material in the colon which could be constipation. 2. Right-sided nephrostomy catheter in place.
--- NOTE | 2024-02-25 12:49 | HMCIMG ---
TOMOGRAM REASON: UNSPECIFIED HYDRONEPHROSIS COMPARISON: None TECHNIQUE: 6 tomogram images are obtained through each kidney. FINDINGS: There is a nephrostomy catheter in place on the right. Right kidney is partially atrophic compared to the left. Neither kidney demonstrates evidence of mass or stone. IMPRESSION: 1. Right-sided nephrostomy catheter present in the partially atrophic right kidney. 2. No stones identified.
== END | disposition home or self-care (01) ==
LOC: RAH 11:23
PROVIDERS: ATTEND Urology
DX: N26.1 Atrophy of kidney (terminal) (principal); N13.30 Unspecified hydronephrosis
CPT/HCPCS: 74018; 76100

== ENCOUNTER → 2024-03-07 | Outpatient (CLI) | payer OTHER ==
--- NOTE | 2024-03-07 14:29 | HMCIMG ---
CT ABD/PEL WO CON RENAL/APPY HISTORY: Right flank pain COMPARISON: 02/07/2024 TECHNIQUE: Multiple sequential axial images of the abdomen and pelvis were obtained from the dome of the diaphragm through symphysis pubis. Patient was not given contrast through intravenous route. Oral contrast was not given. FINDINGS: No pleural effusion is seen bilaterally. There is no evidence of parenchymal disease or pulmonary nodule of the visualized lower lungs. Degenerative changes of the thoracolumbar spine are present. The heart is not enlarged. The liver, spleen, adrenal glands and pancreas are unremarkable. Percutaneous nephrostomy tube is seen entering from the right with distal tip in the right renal pelvis. No hydronephrosis is seen. There is right proximal ureter stone measuring 6.6 mm. There is 16 mm right proximal mid ureter stone. These are grossly unchanged in size compared previous study. There is right renal cortical scarring. No evidence of renal stone is seen. Fecal material is seen in the colon. There are normal size retroperitoneal and mesenteric lymph nodes. No ascites is seen. Atherosclerotic changes are present. Pelvic sidewalls are symmetric bilaterally. Bladder is poorly distended. IMPRESSION: 1. Percutaneous nephrostomy tube is seen entering from the right with distal tip in the right renal pelvis. No hydronephrosis is seen. There is right proximal ureter stone measuring 6.6 mm. There is 16 mm right proximal mid ureter stone. These are grossly unchanged in size compared to previous study. There is right renal cortical scarring. CT was performed with one or more following dose reduction techniques: automated exposure control, adjustment of the mA and kv according to patient's size, or use of a iterative reconstruction technique.
== END | disposition home or self-care (01) ==
LOC: RAH 13:24
PROVIDERS: ATTEND Urology
DX: N20.2 Calculus of kidney with calculus of ureter (principal); I70.8 Atherosclerosis of other arteries; N28.89 Other specified disorders of kidney and ureter; M47.815 Spondylosis without myelopathy or radiculopathy, thoracolumbar region; Z93.6 Other artificial openings of urinary tract status
CPT/HCPCS: 74176

== ENCOUNTER → 2024-04-02 | Outpatient (CLI) | payer OTHER ==
[2024-04-02] MEDS: furoSEMIDE 40MG VIAL ONE (14:46)
--- NOTE | 2024-04-03 10:10 | HMCIMG ---
NM RENOGRAM W/ LASIX HISTORY: hydronephorosis with renal stone TECHNIQUE: The patient was injected with 8mCi of technetium 99 MAG3. Lasix renogram was performed as well, with injection of 33.0 mg of Lasix at the 15minute fe. Sequential posterior images were obtained and the renogram curve results were calculated. FINDINGS: Routine renogram shows split renal function 91% left and % right. The right kidney significantly smaller consistent with atrophy and there is a percutaneous nephrostomy catheter on the right side which is patent. Peak time renal activity of 3 minutes on the left and 7 minutes on the right. (Normal is 3-5 minutes.) The T1/2 post peaktime is 8.7 minutes on the left and 20 minutes on the right. (Normal is 10 mins or less.) IMPRESSION: 1. No evidence of renal/ureteral obstruction. 2. Split renal function % left and 9% right. 3. Significant renal atrophy right side.
== END | disposition home or self-care (01) ==
LOC: RAH 13:23
PROVIDERS: ATTEND Urology
DX: N26.1 Atrophy of kidney (terminal) (principal); N13.2 Hydronephrosis with renal and ureteral calculous obstruction
CPT/HCPCS: 78708; J1940; A9562